=== PATIENT | male | born 1935 | race Caucasian/White ===

== ENCOUNTER → 2016-12-09 | Outpatient (CLI) | payer MEDICARE, BC ==
[~2016-12-09] MED LIST: ACTOS30 MG PO; ALMACONE 360 M360 ML PO; ASPIR-LOW81 MG PO; ASPIRIN 81M81 MG/TA2 PO; AVAPRO TAB150 MG/TAB PO; CALCIUM 600600 M2 PO; CALCIUM 600600 MG PO; CELEXA10 MG PO; CRESTOR10 MG PO; CYMBALTA 60MG60 MG PO; DIOVAN80 M1 PO; DULCOLAX S10 MG/SUPP RC; EPA FISH OIL1 SGL PO; FISH OIL CONC1000 MG PO; FLEXERIL 1010 MG/TAB PO; FLOMAX 0.40.4 MG/CAP PO; GLUCOTROL10 MG PO; HCTZ 25MG TAB25 MG PO; HYDROCHLOR50 MG PO; IMODIUM 2MG CAPS2 MG PO; JANUMXR100-1000 PO; LEXAPRO 10MG10 MG PO; LIDODERM 5% PATC1 EA TP; MILK OF MA400 MG/52 PO; MIRALAX PA17 GM/Dose PO; MULTI VITAMINS1 TAB PO; NEURONTIN100 MG/CAP PO; NEURONTIN400 MG/CAP PO; NITROSTAT0.4 MG/TAB SL; NORCO 325 MG-51 TAB PO; NORCO 325 MG-7.1 TAB PO; NORVASC 5MG5 MG/TAB PO; REQUIP 0.5MG0.5 MG PO; SENOKOT S 50 MG1 TAB PO; SINEMET CR 50 M1 TER PO; TENORMIN 2525 MG/TAB PO; TRAVATAN Z; TYLENOL 325MG325 MG PO; TYLENOL SU325 MG/SUP RC; TYLENOL SU650 MG/SUP RC; VALIUM 5MG T5 MG/TAB PO; VITAMIN D 1001000 IU PO; VITAMIN D1000 IU PO; VITAMIN E 400 U4001 PO; ZOCOR 10MG10 MG PO
== END ==
LOC: COL.CARD 07:09
DX: R55 Syncope and collapse (principal)

== ENCOUNTER 2016-12-22 12:23 | Emergency (ER) | payer MEDICARE, BC ==
[~2016-12-22] VITALS: Ht 170.2 cm; Wt 79.1 kg
[~2016-12-22 12:23] MED LIST changes: -ALMACONE 360 M360 ML PO; -ASPIRIN 81M81 MG/TA2 PO; -AVAPRO TAB150 MG/TAB PO; -CALCIUM 600600 M2 PO; -CALCIUM 600600 MG PO; -CELEXA10 MG PO; -CYMBALTA 60MG60 MG PO; -DULCOLAX S10 MG/SUPP RC; -EPA FISH OIL1 SGL PO; -FLEXERIL 1010 MG/TAB PO; -FLOMAX 0.40.4 MG/CAP PO; -HCTZ 25MG TAB25 MG PO; -IMODIUM 2MG CAPS2 MG PO; -JANUMXR100-1000 PO; -LEXAPRO 10MG10 MG PO; -LIDODERM 5% PATC1 EA TP; -MILK OF MA400 MG/52 PO; -MIRALAX PA17 GM/Dose PO; -MULTI VITAMINS1 TAB PO; -NEURONTIN100 MG/CAP PO; -NEURONTIN400 MG/CAP PO; -NITROSTAT0.4 MG/TAB SL; -NORCO 325 MG-51 TAB PO; -NORCO 325 MG-7.1 TAB PO; -REQUIP 0.5MG0.5 MG PO; -SENOKOT S 50 MG1 TAB PO; -SINEMET CR 50 M1 TER PO; -TENORMIN 2525 MG/TAB PO; -TYLENOL 325MG325 MG PO; -TYLENOL SU325 MG/SUP RC; -TYLENOL SU650 MG/SUP RC; -VALIUM 5MG T5 MG/TAB PO; -VITAMIN D 1001000 IU PO; -VITAMIN D1000 IU PO; -VITAMIN E 400 U4001 PO; -ZOCOR 10MG10 MG PO
[2016-12-22 12:24] VITALS: TEMP 98.1
[2016-12-22] MEDS ORDERED: HCTZ 25MG TAB25 MG PO (13:04)
[2016-12-22] MEDS ORDERED: SINEMET CR 50 M1 TER PO ×2 (13:07→13:08)
[2016-12-22] MEDS ORDERED: CALCIUM 600600 M2 PO (13:07)
[2016-12-22] MEDS ORDERED: LEXAPRO 10MG10 MG PO (13:09)
[2016-12-22] MEDS ORDERED: CYMBALTA 60MG60 MG PO (13:09)
[2016-12-22] MEDS ORDERED: VITAMIN D1000 IU PO (13:09)
[2016-12-22] MEDS ORDERED: NEURONTIN100 MG/CAP PO (13:24)
[2016-12-22] MEDS ORDERED: GLUCOTROL10 MG PO (13:25)
[2016-12-22] MEDS ORDERED: AVAPRO TAB150 MG/TAB PO (13:25)
[2016-12-22] MEDS ORDERED: MULTI VITAMINS1 TAB PO (13:26)
[2016-12-22] MEDS ORDERED: NITROSTAT0.4 MG/TAB SL (13:27)
[2016-12-22] MEDS ORDERED: REQUIP 0.5MG0.5 MG PO (13:28)
[2016-12-22] MEDS ORDERED: ZOCOR 10MG10 MG PO (13:29)
[2016-12-22] MEDS ORDERED: FLOMAX 0.40.4 MG/CAP PO (13:30)
[2016-12-22] MEDS ORDERED: JANUMXR100-1000 PO (13:30)
[2016-12-22] MEDS ORDERED: VITAMIN E 400 U4001 PO (13:31)
[2016-12-22 14:27] VITALS: BP 149/89; PULSE 100
[2017-01-26] MEDS ORDERED: MILK OF MA400 MG/52 PO (12:56)
[2017-01-26] MEDS ORDERED: ALMACONE 360 M360 ML PO (12:56)
[2017-01-26] MEDS ORDERED: DULCOLAX S10 MG/SUPP RC (12:57)
[2017-01-26] MEDS ORDERED: TYLENOL SU325 MG/SUP RC (15:40)
[2017-01-26] MEDS ORDERED: IMODIUM 2MG CAPS2 MG PO (15:45)
[2017-01-26] MEDS ORDERED: TYLENOL 325MG325 MG PO (15:45)
[2017-01-26] MEDS ORDERED: FLEXERIL 1010 MG/TAB PO (15:46)
[2017-01-26] MEDS ORDERED: NORCO 325 MG-51 TAB PO (15:46)
[2017-01-26] MEDS ORDERED: SENOKOT S 50 MG1 TAB PO (15:47)
[2017-01-26] MEDS ORDERED: MIRALAX PA17 GM/Dose PO (15:47)
[2017-01-26] MEDS ORDERED: ASPIRIN 81M81 MG/TA2 PO (15:47)
[2017-01-26] MEDS ORDERED: HCTZ 25MG TAB25 MG PO (15:48)
[2017-01-26] MEDS ORDERED: EPA FISH OIL1 SGL PO (15:48)
[2017-01-26] MEDS ORDERED: CALCIUM 600600 MG PO (15:49)
[2017-01-26] MEDS ORDERED: VITAMIN D 1001000 IU PO (15:50)
[2017-01-26] MEDS ORDERED: NEURONTIN400 MG/CAP PO (15:50)
[2017-01-26] MEDS ORDERED: AVAPRO TAB150 MG/TAB PO (15:51)
[2017-01-26] MEDS ORDERED: GLUCOTROL10 MG PO (15:51)
[2017-01-26] MEDS ORDERED: MULTI VITAMINS1 TAB PO (15:52)
[2017-01-26] MEDS ORDERED: NITROSTAT0.4 MG/TAB SL (15:52)
[2017-01-26] MEDS ORDERED: ZOCOR 10MG10 MG PO (15:53)
[2017-01-26] MEDS ORDERED: REQUIP 0.5MG0.5 MG PO (15:53)
[2017-01-26] MEDS ORDERED: FLOMAX 0.40.4 MG/CAP PO (15:54)
[2017-01-26] MEDS ORDERED: JANUMXR100-1000 PO (15:54)
[2017-01-26] MEDS ORDERED: TENORMIN 2525 MG/TAB PO (15:54)
[2017-01-26] MEDS ORDERED: SINEMET CR 50 M1 TER PO ×2 (15:56)
[2017-01-26] MEDS ORDERED: LIDODERM 5% PATC1 EA TP (15:57)
[2017-01-26] MEDS ORDERED: NORCO 325 MG-7.1 TAB PO (15:57)
[2017-01-26] MEDS ORDERED: CYMBALTA 60MG60 MG PO (15:58)
[2017-01-26] MEDS ORDERED: LEXAPRO 10MG10 MG PO (15:58)
[2017-01-26] MEDS ORDERED: CELEXA10 MG PO (15:59)
[2017-01-26] MEDS ORDERED: VALIUM 5MG T5 MG/TAB PO (16:00)
== END 2016-12-22 14:29 | disposition home or self-care (01) ==
LOC: COL.ER 12:23
DX: K56.41 Fecal impaction (principal); E11.9 Type 2 diabetes mellitus without complications; I10 Essential (primary) hypertension; G20 Parkinson's disease

== ENCOUNTER 2017-01-11 13:49 | Inpatient (IN) | payer MEDICARE, BC ==
[2017-01-11] VITALS (129 sets, daily range): BP systolic 135; BP diastolic 81; PULSE 70; TEMP 97.9; O2SAT 62–100
[~2017-01-11] VITALS: Ht 167.6 cm; Wt 78.6 kg
[~2017-01-11 13:49] MED LIST changes: +AVAPRO TAB150 MG/TAB PO; +CALCIUM 600600 M2 PO; +CYMBALTA 60MG60 MG PO; +FLOMAX 0.40.4 MG/CAP PO; +HCTZ 25MG TAB25 MG PO; +JANUMXR100-1000 PO; +LEXAPRO 10MG10 MG PO; +MULTI VITAMINS1 TAB PO; +NEURONTIN100 MG/CAP PO; +NITROSTAT0.4 MG/TAB SL; +REQUIP 0.5MG0.5 MG PO; +SINEMET CR 50 M1 TER PO; +VITAMIN D1000 IU PO; +VITAMIN E 400 U4001 PO; +ZOCOR 10MG10 MG PO
[2017-01-11 14:32] LABS: BASO % 0.6 % (0.0-2.0); EOS # 0.1 (0.0-0.7); EOS % 1.6 % (0-4.0); GRAN # 5.2 (1.4-6.5); GRAN % 78.1 % (42.2-75.2); LYMPH # 0.9 (1.2-3.4); LYMPH % 12.9 % (20.0-51.0); MEAN CELL VOLUME 85 fl (80.0-100.0); MEAN CORPUSCULAR HGB CONC 32 g/dl (33.0-37.0); MEAN PLATELET VOLUME 9.4 fl (7.4-10.4); MONO # 0.4 (0.1-0.6); MONO % 6.4 % (1.7-9.3); PLATELET COUNT 250 K/mm3 (130-400); RED BLOOD COUNT 4.29 M/mm3 (4.20-5.60); REDCELL DISTRIBUTION WIDTH-CV 15.2 % (11.5-14.5); WHITE BLOOD COUNT 6.7 K/mm3 (4.8-10.8)
[2017-01-11 14:38] LABS: HEMATOCRIT 36.6 % (42.0-52.0); HEMOGLOBIN 11.8 g/dl (13.5-18.0); MEAN CORPUSCULAR HEMOGLOBIN 28 pg (27.0-31.0)
[2017-01-11 14:49] LABS: ADJUSTED CALCIUM 9.1 mg/dL (8.4-10.2); ALANINE AMINOTRANSFERASE 18 U/L (21-72); ALBUMIN 3.7 gm/dL (3.5-5.0); ALKALINE PHOSPHATASE 68 U/L (50-136); ANION GAP 11 mmol/L (7-16); BILIRUBIN,TOTAL 0.7 mg/dL (0.0-1.0); BLOOD UREA NITROGEN 18 mg/dL (9-20); CALCIUM 8.9 mg/dL (8.4-10.2); CARBON DIOXIDE 26 mmol/L (22-30); CHLORIDE 102 mmol/L (98-107); GLUCOSE 131 mg/dL (74-106); POTASSIUM 4.2 mmol/L (3.4-5.0); SODIUM 139 mmol/L (137-145); TOTAL PROTEIN 6.7 gm/dL (6.4-8.2)
[2017-01-11] MEDS ORDERED: TENORMIN 2525 MG/TAB PO (14:55)
[2017-01-11 14:57] LABS: C-REACTIVE PROTEIN < 0.5 mg/dL (0.0-0.9)
[2017-01-11 15:45] LABS: PH 7 (5-8); SQUAMOUS EPITHELIAL None Seen /hpf; URINE APPEARANCE Clear; URINE BACTERIA None Seen /hpf; URINE BILIRUBIN Negative (NEGATIVE); URINE BLOOD Negative (NEGATIVE); URINE COLOR Yellow; URINE GLUCOSE Negative (NEGATIVE); URINE KETONE Negative (NEGATIVE); URINE RBC 0-2 /hpf; URINE UROBILINOGEN Negative (NEGATIVE); URINE WBC 0-2 /hpf
[2017-01-11] MEDS ORDERED: NORCO 325 MG-51 TAB PO (16:48)
[2017-01-12] VITALS (422 sets, daily range): BP systolic 121–167; BP diastolic 57–84; PULSE 52–79; TEMP 97.7–98.4; O2SAT 83–100
[2017-01-13 04:32] VITALS: BP 150/77; PULSE 70; TEMP 98.6
[2017-01-13 08:25] VITALS: BP 156/89; PULSE 72; TEMP 98.2
[2017-01-13 12:41] VITALS: BP 137/77; PULSE 67; TEMP 97.7
[2017-01-13 15:21] VITALS: BP 139/65; PULSE 35; TEMP 98.2
[2017-01-13 19:37] VITALS: BP 119/91; PULSE 75; TEMP 98.6
[2017-01-13 23:39] VITALS: BP 135/95; PULSE 72; TEMP 98.7
[2017-01-14 03:19] VITALS: BP 117/84; PULSE 49; TEMP 98.4
[2017-01-14 06:43] LABS: HEMATOCRIT 39.1 % (42.0-52.0); HEMOGLOBIN 12.3 g/dl (13.5-18.0); MEAN CELL VOLUME 89 fl (80.0-100.0); MEAN CORPUSCULAR HEMOGLOBIN 28 pg (27.0-31.0); MEAN CORPUSCULAR HGB CONC 32 g/dl (33.0-37.0); MEAN PLATELET VOLUME 9.8 fl (7.4-10.4); PLATELET COUNT 252 K/mm3 (130-400); RED BLOOD COUNT 4.41 M/mm3 (4.20-5.60); REDCELL DISTRIBUTION WIDTH-CV 15.8 % (11.5-14.5); WHITE BLOOD COUNT 6.2 K/mm3 (4.8-10.8)
[2017-01-14 07:00] LABS: CALCIUM 9.2 mg/dL (8.4-10.2); CREATININE, serum 1.74 mg/dL (0.66-1.25)
[2017-01-14 07:53] VITALS: BP 119/56; PULSE 77; TEMP 97.8
[2017-01-14 11:16] VITALS: BP 101/56; PULSE 119; TEMP 98
[2017-01-14 16:04] VITALS: BP 114/46; PULSE 79; TEMP 97.6
[2017-01-14 21:08] VITALS: BP 151/77; PULSE 75; TEMP 98
[2017-01-14 22:35] VITALS: BP 113/56; PULSE 50; TEMP 97.4
[2017-01-15 02:50] VITALS: BP 107/55; PULSE 74; TEMP 98.2
[2017-01-15 07:34] VITALS: BP 131/71; PULSE 78; TEMP 97.4
[2017-01-15 08:00] LABS: HEMATOCRIT 38.3 % (42.0-52.0); HEMOGLOBIN 12.2 g/dl (13.5-18.0); MEAN CELL VOLUME 87 fl (80.0-100.0); MEAN CORPUSCULAR HEMOGLOBIN 28 pg (27.0-31.0); MEAN CORPUSCULAR HGB CONC 32 g/dl (33.0-37.0); MEAN PLATELET VOLUME 10.1 fl (7.4-10.4); PLATELET COUNT 261 K/mm3 (130-400); RED BLOOD COUNT 4.38 M/mm3 (4.20-5.60); REDCELL DISTRIBUTION WIDTH-CV 15.5 % (11.5-14.5); WHITE BLOOD COUNT 6.1 K/mm3 (4.8-10.8)
[2017-01-15 08:09] LABS: CREATININE, serum 1.63 mg/dL (0.66-1.25); POTASSIUM 4.2 mmol/L (3.4-5.0)
[2017-01-15] MEDS ORDERED: FLEXERIL 1010 MG/TAB PO (09:56)
[2017-01-15] MEDS ORDERED: SENOKOT S 50 MG1 TAB PO (09:59)
[2017-01-15] MEDS ORDERED: DULCOLAX S10 MG/SUPP RC (10:00)
[2017-01-15] MEDS ORDERED: MIRALAX PA17 GM/Dose PO (10:00)
[2017-01-15] MEDS ORDERED: NORCO 325 MG-51 TAB PO (10:01)
[2017-01-15] MEDS ORDERED: VALIUM 5MG T5 MG/TAB PO (10:12)
[2017-01-15 10:48] VITALS: BP 153/73; PULSE 35; TEMP 97.7
[2017-01-15 11:40] VITALS: BP 153/73; PULSE 35; TEMP 97.7
[2017-01-26] MEDS ORDERED: ALMACONE 360 M360 ML PO (12:56)
[2017-01-26] MEDS ORDERED: MILK OF MA400 MG/52 PO (12:56)
[2017-01-26] MEDS ORDERED: DULCOLAX S10 MG/SUPP RC (12:57)
[2017-01-26] MEDS ORDERED: TYLENOL SU325 MG/SUP RC (15:40)
[2017-01-26] MEDS ORDERED: TYLENOL 325MG325 MG PO (15:45)
[2017-01-26] MEDS ORDERED: IMODIUM 2MG CAPS2 MG PO (15:45)
[2017-01-26] MEDS ORDERED: NORCO 325 MG-51 TAB PO (15:46)
[2017-01-26] MEDS ORDERED: FLEXERIL 1010 MG/TAB PO (15:46)
[2017-01-26] MEDS ORDERED: ASPIRIN 81M81 MG/TA2 PO (15:47)
[2017-01-26] MEDS ORDERED: MIRALAX PA17 GM/Dose PO (15:47)
[2017-01-26] MEDS ORDERED: SENOKOT S 50 MG1 TAB PO (15:47)
[2017-01-26] MEDS ORDERED: HCTZ 25MG TAB25 MG PO (15:48)
[2017-01-26] MEDS ORDERED: EPA FISH OIL1 SGL PO (15:48)
[2017-01-26] MEDS ORDERED: CALCIUM 600600 MG PO (15:49)
[2017-01-26] MEDS ORDERED: VITAMIN D 1001000 IU PO (15:50)
[2017-01-26] MEDS ORDERED: NEURONTIN400 MG/CAP PO (15:50)
[2017-01-26] MEDS ORDERED: GLUCOTROL10 MG PO (15:51)
[2017-01-26] MEDS ORDERED: AVAPRO TAB150 MG/TAB PO (15:51)
[2017-01-26] MEDS ORDERED: MULTI VITAMINS1 TAB PO (15:52)
[2017-01-26] MEDS ORDERED: NITROSTAT0.4 MG/TAB SL (15:52)
[2017-01-26] MEDS ORDERED: ZOCOR 10MG10 MG PO (15:53)
[2017-01-26] MEDS ORDERED: REQUIP 0.5MG0.5 MG PO (15:53)
[2017-01-26] MEDS ORDERED: JANUMXR100-1000 PO (15:54)
[2017-01-26] MEDS ORDERED: TENORMIN 2525 MG/TAB PO (15:54)
[2017-01-26] MEDS ORDERED: FLOMAX 0.40.4 MG/CAP PO (15:54)
[2017-01-26] MEDS ORDERED: SINEMET CR 50 M1 TER PO ×2 (15:56)
[2017-01-26] MEDS ORDERED: LIDODERM 5% PATC1 EA TP (15:57)
[2017-01-26] MEDS ORDERED: NORCO 325 MG-7.1 TAB PO (15:57)
[2017-01-26] MEDS ORDERED: LEXAPRO 10MG10 MG PO (15:58)
[2017-01-26] MEDS ORDERED: CYMBALTA 60MG60 MG PO (15:58)
[2017-01-26] MEDS ORDERED: CELEXA10 MG PO (15:59)
[2017-01-26] MEDS ORDERED: VALIUM 5MG T5 MG/TAB PO (16:00)
== END 2017-01-15 14:33 | DRG 552 ==
LOC: COL.ER 13:49 → ICU 19:16 → MEDICAL 19:16
PROVIDERS: Emergency Medicine; Internal Medicine
PROC: 3E0233Z Introduction of Anti-inflammatory into Muscle, Percutaneous Approach (ICD-10-PCS; principal; 2017-01-14)
PROC: 3E023BZ Introduction of Anesthetic Agent into Muscle, Percutaneous Approach (ICD-10-PCS; 2017-01-14)
DX: M54.32 Sciatica, left side (principal); M51.17 Intervertebral disc disorders with radiculopathy, lumbosacral region; Z66 Do not resuscitate; G20 Parkinson's disease; I10 Essential (primary) hypertension; E11.9 Type 2 diabetes mellitus without complications; Z87.891 Personal history of nicotine dependence
CPT/HCPCS: 99223-AI; 99232-AI; 99233-AI; 99239; J0360; J1170; J1815; J2405; J3301; J3360; J7030; Q9967

== ENCOUNTER 2017-01-25 10:46 | Emergency (ER) | payer MEDICARE, BC ==
[~2017-01-25] VITALS: Ht 167.6 cm; Wt 77.3 kg
[~2017-01-25 10:46] MED LIST changes: +DULCOLAX S10 MG/SUPP RC; +FLEXERIL 1010 MG/TAB PO; +MIRALAX PA17 GM/Dose PO; +NORCO 325 MG-51 TAB PO; +SENOKOT S 50 MG1 TAB PO; +TENORMIN 2525 MG/TAB PO; +VALIUM 5MG T5 MG/TAB PO
[2017-01-25 10:47] VITALS: TEMP 98.3
[2017-01-25] MEDS ORDERED: ALMACONE 360 M360 ML PO (11:13)
[2017-01-25] MEDS ORDERED: MILK OF MA400 MG/52 PO (11:13)
[2017-01-25] MEDS ORDERED: TYLENOL 325MG325 MG PO (11:14)
[2017-01-25] MEDS ORDERED: TYLENOL SU650 MG/SUP RC (11:14)
[2017-01-25] MEDS ORDERED: IMODIUM 2MG CAPS2 MG PO (11:15)
[2017-01-25] MEDS ORDERED: SINEMET CR 50 M1 TER PO (11:21)
[2017-01-25] MEDS ORDERED: NORCO 325 MG-7.1 TAB PO (11:22)
[2017-01-25] MEDS ORDERED: LIDODERM 5% PATC1 EA TP (11:23)
[2017-01-25 12:05] VITALS: BP 136/83; PULSE 74
[2017-01-26] MEDS ORDERED: MILK OF MA400 MG/52 PO (12:56)
[2017-01-26] MEDS ORDERED: ALMACONE 360 M360 ML PO (12:56)
[2017-01-26] MEDS ORDERED: DULCOLAX S10 MG/SUPP RC (12:57)
[2017-01-26] MEDS ORDERED: TYLENOL SU325 MG/SUP RC (15:40)
[2017-01-26] MEDS ORDERED: TYLENOL 325MG325 MG PO (15:45)
[2017-01-26] MEDS ORDERED: IMODIUM 2MG CAPS2 MG PO (15:45)
[2017-01-26] MEDS ORDERED: FLEXERIL 1010 MG/TAB PO (15:46)
[2017-01-26] MEDS ORDERED: NORCO 325 MG-51 TAB PO (15:46)
[2017-01-26] MEDS ORDERED: SENOKOT S 50 MG1 TAB PO (15:47)
[2017-01-26] MEDS ORDERED: ASPIRIN 81M81 MG/TA2 PO (15:47)
[2017-01-26] MEDS ORDERED: MIRALAX PA17 GM/Dose PO (15:47)
[2017-01-26] MEDS ORDERED: EPA FISH OIL1 SGL PO (15:48)
[2017-01-26] MEDS ORDERED: HCTZ 25MG TAB25 MG PO (15:48)
[2017-01-26] MEDS ORDERED: CALCIUM 600600 MG PO (15:49)
[2017-01-26] MEDS ORDERED: VITAMIN D 1001000 IU PO (15:50)
[2017-01-26] MEDS ORDERED: NEURONTIN400 MG/CAP PO (15:50)
[2017-01-26] MEDS ORDERED: GLUCOTROL10 MG PO (15:51)
[2017-01-26] MEDS ORDERED: AVAPRO TAB150 MG/TAB PO (15:51)
[2017-01-26] MEDS ORDERED: MULTI VITAMINS1 TAB PO (15:52)
[2017-01-26] MEDS ORDERED: NITROSTAT0.4 MG/TAB SL (15:52)
[2017-01-26] MEDS ORDERED: ZOCOR 10MG10 MG PO (15:53)
[2017-01-26] MEDS ORDERED: REQUIP 0.5MG0.5 MG PO (15:53)
[2017-01-26] MEDS ORDERED: FLOMAX 0.40.4 MG/CAP PO (15:54)
[2017-01-26] MEDS ORDERED: JANUMXR100-1000 PO (15:54)
[2017-01-26] MEDS ORDERED: TENORMIN 2525 MG/TAB PO (15:54)
[2017-01-26] MEDS ORDERED: SINEMET CR 50 M1 TER PO ×2 (15:56)
[2017-01-26] MEDS ORDERED: NORCO 325 MG-7.1 TAB PO (15:57)
[2017-01-26] MEDS ORDERED: LIDODERM 5% PATC1 EA TP (15:57)
[2017-01-26] MEDS ORDERED: LEXAPRO 10MG10 MG PO (15:58)
[2017-01-26] MEDS ORDERED: CYMBALTA 60MG60 MG PO (15:58)
[2017-01-26] MEDS ORDERED: CELEXA10 MG PO (15:59)
[2017-01-26] MEDS ORDERED: VALIUM 5MG T5 MG/TAB PO (16:00)
== END 2017-01-25 12:30 | disposition home or self-care (01) ==
LOC: COL.ER 10:46
DX: I49.3 Ventricular premature depolarization (principal); E11.9 Type 2 diabetes mellitus without complications; I10 Essential (primary) hypertension; Z86.73 Personal history of transient ischemic attack (TIA), and cerebral infarction without residual deficits; G20 Parkinson's disease; Z79.82 Long term (current) use of aspirin; Z79.84 Long term (current) use of oral hypoglycemic drugs

== ENCOUNTER → 2017-01-30 | Outpatient (CLI) | payer MEDICARE, BC ==
[~2017-01-30] VITALS: Ht 167.6 cm; Wt 77.3 kg
[~2017-01-30] MED LIST changes: +ALMACONE 360 M360 ML PO; +ASPIRIN 81M81 MG/TA2 PO; +CALCIUM 600600 MG PO; +CELEXA10 MG PO; +EPA FISH OIL1 SGL PO; +IMODIUM 2MG CAPS2 MG PO; +LIDODERM 5% PATC1 EA TP; +MILK OF MA400 MG/52 PO; +NEURONTIN400 MG/CAP PO; +NORCO 325 MG-7.1 TAB PO; +TYLENOL 325MG325 MG PO; +TYLENOL SU325 MG/SUP RC; +TYLENOL SU650 MG/SUP RC; +VITAMIN D 1001000 IU PO
[2017-01-30 09:25] VITALS: BP 134/86; PULSE 46
[2017-01-30 10:30] VITALS: BP 110/40; PULSE 38
== END ==
LOC: COL.RAD 08:53
DX: M48.06 Spinal stenosis, lumbar region (principal); G82.20 Paraplegia, unspecified; M51.36 Other intervertebral disc degeneration, lumbar region
CPT/HCPCS: J3301

== ENCOUNTER → 2017-02-02 | Outpatient (CLI) | payer MEDICARE, BC | LOC: COL.CARD 11:48 | DX: R00.1 Bradycardia, unspecified (principal) ==

== ENCOUNTER → 2017-03-02 | Outpatient (CLI) | payer MEDICARE, BC | LOC: MHCPAIN 10:29 | DX: G89.29 Other chronic pain (principal); M47.817 Spondylosis without myelopathy or radiculopathy, lumbosacral region; M54.16 Radiculopathy, lumbar region; M53.3 Sacrococcygeal disorders, not elsewhere classified | CPT/HCPCS: G0463 ==

== ENCOUNTER 2017-03-03 08:30 | Outpatient (RCR) | payer MEDICARE, BC | END 2017-03-03 10:30 | LOC: WSPT 08:30 | DX: M48.06 Spinal stenosis, lumbar region (principal); Z87.891 Personal history of nicotine dependence ==

== ENCOUNTER 2017-05-29 08:00 | Outpatient (RCR) | payer MEDICARE, BC | END 2017-06-04 11:42 | LOC: MKS.ESL.PT 08:00 | DX: Z47.89 Encounter for other orthopedic aftercare (principal); R53.1 Weakness; R20.0 Anesthesia of skin; R26.89 Other abnormalities of gait and mobility; Z98.890 Other specified postprocedural states | CPT/HCPCS: G8978-GP; G8979-GP; G8980-GP ==

== ENCOUNTER → 2018-05-12 | Outpatient (CLI) | payer MEDICARE, BC ==
[~2018-05-12] VITALS: Ht 167.6 cm; Wt 77.7 kg
[~2018-05-12] MED LIST changes: +ARICEPT10 MG PO; +B COMPLEX #11 TAB PO; +FLONASEALLERGY NS; +GINKGO3 PO; +GLUCOPHAGE1000 MG PO; +LASIX 40MG TABL40 MG PO; +SINEMET 25/101 UDTAB PO
[2018-05-12 09:04] VITALS: BP 119/75; PULSE 100
[2018-05-12 10:50] VITALS: BP 126/74; PULSE 101
[2018-05-12 11:22] VITALS: BP 119/83; PULSE 101
== END ==
LOC: COL.RAD 05-05 11:45
DX: M50.01 Cervical disc disorder with myelopathy, high cervical region (principal); M50.11 Cervical disc disorder with radiculopathy, high cervical region; M47.12 Other spondylosis with myelopathy, cervical region; M47.22 Other spondylosis with radiculopathy, cervical region; J90 Pleural effusion, not elsewhere classified
CPT/HCPCS: G9654; J2250; J2704; J3010

== ENCOUNTER → 2018-05-19 | Outpatient (CLI) | payer MEDICARE, BC | LOC: COL.RAD 10:05 | DX: J90 Pleural effusion, not elsewhere classified (principal); I35.2 Nonrheumatic aortic (valve) stenosis with insufficiency; R00.0 Tachycardia, unspecified; I07.1 Rheumatic tricuspid insufficiency; I34.0 Nonrheumatic mitral (valve) insufficiency ==

== ENCOUNTER 2018-06-01 16:22 | Inpatient (IN) | payer MEDICARE, BC ==
[~2018-06-01] VITALS: Ht 167.6 cm; Wt 79.7 kg
[2018-06-01 16:54] VITALS: O2SAT 80; O2SAT 97
[2018-06-01] MEDS ORDERED: ALDACTONE 25MG25 M1 PO (18:03)
[2018-06-01] MEDS ORDERED: COZAAR 50MG50 MG/TAB PO (18:04)
[2018-06-01] MEDS ORDERED: COREG 3.123.125 MG/T PO (18:04)
[2018-06-01] MEDS ORDERED: CEPHALEXIN500 M1 PO ×2 (18:05→18:07)
[2018-06-01] MEDS ORDERED: NEURONTIN300 MG/CAP PO (18:08)
[2018-06-01 18:29] LABS: BASO % 0.5 % (0.0-2.0); EOS # 0.1 (0.0-0.7); EOS % 1.6 % (0-4.0); GRAN # 5.4 (1.4-6.5); GRAN % 85.8 % (42.2-75.2); LYMPH # 0.3 (1.2-3.4); LYMPH % 5.2 % (20.0-51.0); MEAN CELL VOLUME 85 fl (80.0-100.0); MEAN CORPUSCULAR HGB CONC 32 g/dl (33.0-37.0); MEAN PLATELET VOLUME 10.7 fl (7.4-10.4); MONO # 0.4 (0.1-0.6); MONO % 6.6 % (1.7-9.3); PLATELET COUNT 263 K/mm3 (130-400); RED BLOOD COUNT 3.59 M/mm3 (4.20-5.60); REDCELL DISTRIBUTION WIDTH-CV 18.8 % (11.5-14.5)
[2018-06-01 18:31] VITALS: BP 102/73; PULSE 72; TEMP 97.7
[2018-06-01 18:36] LABS: HEMATOCRIT 30.6 % (42.0-52.0); HEMOGLOBIN 9.7 g/dl (13.5-18.0); MEAN CORPUSCULAR HEMOGLOBIN 27 pg (27.0-31.0)
[2018-06-01 18:39] LABS: ALBUMIN 3.4 gm/dL (3.5-5.0); BILIRUBIN,TOTAL 0.4 mg/dL (0.0-1.0); CALCIUM 9.1 mg/dL (8.4-10.2); POTASSIUM 4.9 mmol/L (3.4-5.0); TOTAL PROTEIN 6.7 gm/dL (6.4-8.2)
[2018-06-01 18:41] LABS: CREATININE, serum 5.2 mg/dL (0.66-1.25)
[2018-06-01 19:54] LABS: COLLECTION METHOD CLEAN CATCH
[2018-06-01 20:00] VITALS: BP 124/94; PULSE 70; TEMP 97.6
[2018-06-01 20:00] LABS: PH 5 (5-8); SQUAMOUS EPITHELIAL 0-2 /hpf; URINE APPEARANCE Clear; URINE BACTERIA None Seen /hpf; URINE BILIRUBIN Negative (NEGATIVE); URINE BLOOD Negative (NEGATIVE); URINE COLOR Yellow; URINE GLUCOSE Negative (NEGATIVE); URINE KETONE Negative (NEGATIVE); URINE LEUKOCYTE ESTERASE Negative (NEGATIVE); URINE NITRATE Negative (NEGATIVE); URINE PROTEIN(semi-quant) Negative (NEGATIVE); URINE RBC 0-2 /hpf; URINE UROBILINOGEN Negative (NEGATIVE)
[2018-06-01 20:02] LABS: URINE PROTEIN:CREAT RATIO 0.44 (0.00-0.14)
[2018-06-01 21:10] VITALS: O2SAT 90
[2018-06-01 21:11] VITALS: O2SAT 87
[2018-06-01 23:43] VITALS: BP 109/76; PULSE 72; TEMP 97.8
[2018-06-02] VITALS (7 sets, daily range): BP systolic 121–132; BP diastolic 66–104; PULSE 70–82; TEMP 97.1–98.9; O2SAT 92
[2018-06-02 05:32] LABS: BASO % 0.6 % (0.0-2.0); EOS # 0.2 (0.0-0.7); EOS % 2.7 % (0-4.0); GRAN # 5.3 (1.4-6.5); GRAN % 85.3 % (42.2-75.2); LYMPH # 0.3 (1.2-3.4); LYMPH % 5.1 % (20.0-51.0); MEAN CELL VOLUME 86 fl (80.0-100.0); MEAN CORPUSCULAR HGB CONC 31 g/dl (33.0-37.0); MEAN PLATELET VOLUME 10.4 fl (7.4-10.4); MONO # 0.4 (0.1-0.6); MONO % 5.8 % (1.7-9.3); PLATELET COUNT 256 K/mm3 (130-400); RED BLOOD COUNT 3.53 M/mm3 (4.20-5.60); REDCELL DISTRIBUTION WIDTH-CV 18.8 % (11.5-14.5)
[2018-06-02 05:37] LABS: HEMATOCRIT 30.3 % (42.0-52.0); HEMOGLOBIN 9.4 g/dl (13.5-18.0); MEAN CORPUSCULAR HEMOGLOBIN 27 pg (27.0-31.0)
[2018-06-02 05:53] LABS: ALBUMIN 3.2 gm/dL (3.5-5.0); CALCIUM 8.9 mg/dL (8.4-10.2); PHOSPHOROUS 5.9 mg/dL (2.5-4.5); POTASSIUM 4.9 mmol/L (3.4-5.0)
[2018-06-02 05:59] LABS: CREATININE, serum 4.94 mg/dL (0.66-1.25)
[2018-06-03] VITALS (7 sets, daily range): BP systolic 106–142; BP diastolic 64–95; PULSE 60–87; TEMP 97.4–98.2; O2SAT 98
[2018-06-03 05:56] LABS: MEAN CELL VOLUME 85 fl (80.0-100.0); MEAN CORPUSCULAR HEMOGLOBIN 27 pg (27.0-31.0); MEAN CORPUSCULAR HGB CONC 31 g/dl (33.0-37.0); MEAN PLATELET VOLUME 10.3 fl (7.4-10.4); PLATELET COUNT 275 K/mm3 (130-400); RED BLOOD COUNT 3.75 M/mm3 (4.20-5.60); REDCELL DISTRIBUTION WIDTH-CV 19.2 % (11.5-14.5)
[2018-06-03 06:08] LABS: ALBUMIN 3.1 gm/dL (3.5-5.0); CALCIUM 9.2 mg/dL (8.4-10.2); PHOSPHOROUS 6.7 mg/dL (2.5-4.5); POTASSIUM 5.1 mmol/L (3.4-5.0)
[2018-06-03 06:11] LABS: CREATININE, serum 4.85 mg/dL (0.66-1.25)
[2018-06-03 09:39] LABS: BAND 2 % (0-10); LYMPHOCYTE 2 % (20.0-51.0); NEUTROPHILS 92 % (42.0-75.2); PLATELET ESTIMATE NORMAL (NORMAL)
[2018-06-03 09:40] LABS: ANISOCYTOSIS 1+
[2018-06-04 03:36] VITALS: BP 95/66; PULSE 71
[2018-06-04 04:39] VITALS: BP 107/59
[2018-06-04 06:51] LABS: BASO % 0.3 % (0.0-2.0); EOS % 0.7 % (0-4.0); GRAN # 5.3 (1.4-6.5); GRAN % 88.4 % (42.2-75.2); LYMPH # 0.3 (1.2-3.4); MEAN CELL VOLUME 86 fl (80.0-100.0); MEAN CORPUSCULAR HGB CONC 32 g/dl (33.0-37.0); MEAN PLATELET VOLUME 10.4 fl (7.4-10.4); MONO # 0.3 (0.1-0.6); MONO % 5.3 % (1.7-9.3); PLATELET COUNT 244 K/mm3 (130-400); RED BLOOD COUNT 3.56 M/mm3 (4.20-5.60); REDCELL DISTRIBUTION WIDTH-CV 19.6 % (11.5-14.5)
[2018-06-04 06:52] LABS: HEMATOCRIT 30.7 % (42.0-52.0); HEMOGLOBIN 9.7 g/dl (13.5-18.0); MEAN CORPUSCULAR HEMOGLOBIN 27 pg (27.0-31.0)
[2018-06-04 06:59] LABS: PHOSPHOROUS 6.1 mg/dL (2.5-4.5); POTASSIUM 4.5 mmol/L (3.4-5.0)
[2018-06-04 07:06] LABS: CREATININE, serum 4.82 mg/dL (0.66-1.25)
[2018-06-04 07:15] VITALS: BP 119/85; PULSE 85; TEMP 98.2
[2018-06-04] MEDS ORDERED: LASIX 40MG TABL40 MG PO (11:59)
[2018-06-04 12:00] VITALS: BP 122/89; PULSE 76; TEMP 98.5
[2018-06-04] MEDS ORDERED: JANUVIA25 MG PO (12:00)
[2018-06-04] MEDS ORDERED: CALCIUM 600600 MG PO (12:20)
== END 2018-06-04 14:44 | DRG 682 ==
LOC: ICU 16:22 → MEDICAL 06-03 11:09
PROVIDERS: Internal Medicine Nephrology
DX: N17.9 Acute kidney failure, unspecified (principal); I50.23 Acute on chronic systolic (congestive) heart failure; I13.0 Hypertensive heart and chronic kidney disease with heart failure and stage 1 through stage 4 chronic kidney disease, or unspecified chronic kidney disease; L03.116 Cellulitis of left lower limb; N18.3 Chronic kidney disease, stage 3 (moderate); E11.22 Type 2 diabetes mellitus with diabetic chronic kidney disease; Z66 Do not resuscitate; E11.21 Type 2 diabetes mellitus with diabetic nephropathy; E11.42 Type 2 diabetes mellitus with diabetic polyneuropathy; G20 Parkinson's disease; F03.90 Unspecified dementia, unspecified severity, without behavioral disturbance, psychotic disturbance, mood disturbance, and anxiety; E78.5 Hyperlipidemia, unspecified; D63.1 Anemia in chronic kidney disease; E83.39 Other disorders of phosphorus metabolism
CPT/HCPCS: J1650; J1815; J1940; J7030

== ENCOUNTER → 2018-06-30 | Outpatient (CLI) | payer MEDICARE, BC ==
[~2018-06-30] MED LIST changes: +ALDACTONE 25MG25 M1 PO; +CEPHALEXIN500 M1 PO; +COREG 3.123.125 MG/T PO; +COZAAR 25MG25 MG/TAB PO; +COZAAR 50MG50 MG/TAB PO; +CYMBALTA 30MG30 MG PO; +GENTLE LAXATIVE10 MG RC; +JANUVIA25 MG PO; +LASIX 20MG TABL20 MG PO; +NEURONTIN300 MG/CAP PO; +NOVOLOG FLEX100 U/ML SQ; +PACERONE400 MG PO
== END ==
LOC: MHCPAIN 10:26
DX: G89.29 Other chronic pain (principal); M47.817 Spondylosis without myelopathy or radiculopathy, lumbosacral region; M54.16 Radiculopathy, lumbar region; M53.3 Sacrococcygeal disorders, not elsewhere classified; M96.1 Postlaminectomy syndrome, not elsewhere classified; M50.90 Cervical disc disorder, unspecified, unspecified cervical region
CPT/HCPCS: G0463

== ENCOUNTER 2018-07-12 14:00 | Outpatient (RCR) | payer MEDICARE, BC ==
[2018-07-02 13:15] VITALS: BP 109/53; PULSE 66; TEMP 97.5
[2018-07-07 12:35] VITALS: BP 119/73; PULSE 75; TEMP 98
[~2018-07-12] VITALS: Ht 167.6 cm; Wt 71.0 kg
[2018-07-12 13:45] VITALS: BP 95/47; PULSE 54; TEMP 97.2
== END 2018-07-12 15:00 ==
LOC: EUO 14:00
DX: D50.9 Iron deficiency anemia, unspecified (principal)
CPT/HCPCS: J2916

== ENCOUNTER → 2018-07-15 | Outpatient (CLI) | payer MEDICARE, BC | LOC: MHCPAIN 09:41 | DX: M47.814 Spondylosis without myelopathy or radiculopathy, thoracic region (principal); M54.16 Radiculopathy, lumbar region | CPT/HCPCS: J1100; Q9967 ==

== ENCOUNTER 2018-09-17 17:31 | Inpatient (IN) | payer MEDICARE, BC ==
[2018-09-17] VITALS (141 sets, daily range): O2SAT 64–100
[~2018-09-17] VITALS: Ht 165.1 cm; Wt 57.9 kg
[~2018-09-17 17:31] MED LIST changes: +CORDARONE200 MG/TAB PO; +COREG 6.256.25 MG/TA PO
[2018-09-17 17:47] LABS: BASO # 0.1 (0.0-0.2); BASO % 0.9 % (0.0-2.0); EOS # 0.9 (0.0-0.7); EOS % 13.3 % (0-4.0); GRAN # 4.2 (1.4-6.5); GRAN % 65.4 % (42.2-75.2); LYMPH # 0.6 (1.2-3.4); LYMPH % 8.7 % (20.0-51.0); MEAN CELL VOLUME 92 fl (80.0-100.0); MEAN CORPUSCULAR HGB CONC 31 g/dl (33.0-37.0); MEAN PLATELET VOLUME 9.4 fl (7.4-10.4); MONO # 0.7 (0.1-0.6); MONO % 11.1 % (1.7-9.3); PLATELET COUNT 285 K/mm3 (130-400); RED BLOOD COUNT 3.35 M/mm3 (4.20-5.60); REDCELL DISTRIBUTION WIDTH-CV 14.8 % (11.5-14.5)
[2018-09-17 17:49] LABS: HEMATOCRIT 30.8 % (42.0-52.0); HEMOGLOBIN 9.6 g/dl (13.5-18.0); MEAN CORPUSCULAR HEMOGLOBIN 29 pg (27.0-31.0)
[2018-09-17 18:04] LABS: ALBUMIN 3.6 gm/dL (3.5-5.0); BILIRUBIN,TOTAL 0.4 mg/dL (0.0-1.0); CALCIUM 9.1 mg/dL (8.4-10.2); MAGNESIUM 2.6 mg/dL (1.6-2.3); PHOSPHOROUS 6.8 mg/dL (2.5-4.5); TOTAL PROTEIN 6.9 gm/dL (6.4-8.2)
[2018-09-17 18:06] LABS: CREATININE, serum 5.87 mg/dL (0.66-1.25); POTASSIUM 7.1 mmol/L (3.4-5.0)
[2018-09-17 18:14] LABS: TROPONIN-I 0.032 ng/mL (0.000-0.035)
[2018-09-17] MEDS ORDERED: ALDACTONE 25MG25 M1 PO (18:23)
[2018-09-17 19:30] LABS: COLLECTION METHOD CLEAN CATCH
[2018-09-17 19:47] LABS: CREATININE, serum 5.38 mg/dL (0.66-1.25)
[2018-09-17 19:48] LABS: MUCOUS Present /lpf; PH 6 (5-8); SQUAMOUS EPITHELIAL 0-2 /hpf; URINE APPEARANCE Clear; URINE BACTERIA None Seen /hpf; URINE BILIRUBIN Negative (NEGATIVE); URINE BLOOD Negative (NEGATIVE); URINE COLOR Yellow; URINE GLUCOSE Negative (NEGATIVE); URINE KETONE Negative (NEGATIVE); URINE LEUKOCYTE ESTERASE Negative (NEGATIVE); URINE NITRATE Negative (NEGATIVE); URINE PROTEIN(semi-quant) Negative (NEGATIVE); URINE RBC 0-2 /hpf; URINE UROBILINOGEN Negative (NEGATIVE); URINE WBC 0-2 /hpf
[2018-09-17 19:48] LABS: POTASSIUM 6.2 mmol/L (3.4-5.0)
--- NOTE | 2018-09-17 20:11 | NUR ---
Pt admitted to ICU bed 1 from ED. Pt arrived via stretcher and placed on maintenance worker house trailer. Vitals stable upon arrival. Family present on admission to unit. Denies any complaints or concerns. Dr. Ansari at bedside for admission.
[2018-09-17 21:22] LABS: INR 0.9 (0.8-3.0); PROTHROMBIN TIME 10.6 SECONDS (9.7-12.8)
[2018-09-17 21:24] LABS: PARTIAL THROMBOPLASTIN TIME 34.4 SECONDS (26.0-37.0)
[2018-09-17 21:28] LABS: IRON,SERUM 76 ug/dL (35-150)
[2018-09-17 21:38] LABS: TOTAL IRON BINDING CAPACITY 202 ug/dL (261-462)
[2018-09-17 22:05] LABS: FERRITIN 289 ng/mL (18-464)
[2018-09-18] VITALS (421 sets, daily range): BP systolic 82–157; BP diastolic 44–84; PULSE 43–87; TEMP 97.4–99.7; O2SAT 79–100
--- NOTE | 2018-09-18 00:47 | NUR ---
Admission assessment complete at this time. Plan of care reviewed at bedside with patient et family. Additional time taken to address any other needs or concerns. Vitals stable at this time. Denies pain or any other discomfort. Will continue to monitor.
--- NOTE | 2018-09-18 04:00 | NUR ---
Shift reassessment complete at this time. No changes from previous assessment. Vitals stable at this time. Denies pain or any other discomfort. Will continue to monitor.
[2018-09-18 05:50] LABS: BASO % 0.3 % (0.0-2.0); EOS # 0.7 (0.0-0.7); EOS % 10.9 % (0-4.0); GRAN % 74.3 % (42.2-75.2); LYMPH # 0.3 (1.2-3.4); MEAN CELL VOLUME 91 fl (80.0-100.0); MEAN CORPUSCULAR HGB CONC 32 g/dl (33.0-37.0); MONO # 0.6 (0.1-0.6); MONO % 8.9 % (1.7-9.3); PLATELET COUNT 256 K/mm3 (130-400); RED BLOOD COUNT 3.39 M/mm3 (4.20-5.60)
[2018-09-18 05:54] LABS: HEMATOCRIT 30.7 % (42.0-52.0); HEMOGLOBIN 9.7 g/dl (13.5-18.0); MEAN CORPUSCULAR HEMOGLOBIN 29 pg (27.0-31.0)
[2018-09-18 06:01] LABS: ALBUMIN 3.3 gm/dL (3.5-5.0); CALCIUM 9.1 mg/dL (8.4-10.2); PHOSPHOROUS 6.7 mg/dL (2.5-4.5)
[2018-09-18 06:03] LABS: CREATININE, serum 5.4 mg/dL (0.66-1.25); POTASSIUM 6.2 mmol/L (3.4-5.0)
--- NOTE | 2018-09-18 07:00 | NUR ---
Bedside report received from RAUL Ambrocio.
--- NOTE | 2018-09-18 07:25 | NUR ---
Bedside report given to RAUL Kirkland.
--- NOTE | 2018-09-18 07:35 | NUR ---
Assessment complete, patient reports pain to lower extremity, requesting pain medication, given. Patient NPO for procedure. Call light within reach.
--- NOTE | 2018-09-18 10:09 | NUR ---
Patient assisted to bedside commode, AM care complete, back to bed, call light within reach.
--- NOTE | 2018-09-18 11:46 | NUR ---
Patient taken to OR via bed.
--- NOTE | 2018-09-18 12:26 | NUR ---
Patient back from procedure.
--- NOTE | 2018-09-18 12:45 | NUR ---
Patient taken back to dialysis via bed.
--- NOTE | 2018-09-18 14:42 | NUR ---
Aranesp and Nulecit both given in dialysis.
--- NOTE | 2018-09-18 15:00 | NUR ---
Back to room from dialysis.
--- NOTE | 2018-09-18 15:00 | NUR ---
Report called to RAUL Talavera.
--- NOTE | 2018-09-18 15:11 | NUR ---
Daughter Esther, was called and updated on new room assignment ([id number].)
--- NOTE | 2018-09-18 15:35 | NUR ---
Patient transferred to [facility] via bed. RAUL Talavera in room to greet patient.
--- NOTE | 2018-09-18 15:45 | NUR ---
pt arrived to unit, oriented to room, med rec reviewed and physical assessment completed. Lungs are clear throughout with CC in bases, pt on RA and denies SOB,bowel sounds active but abdomen is concave and pt malnourished. Dialysis cath to Rt chest surrounding tissue is free of redness/swelling, dressing is clean, dry and intact. Marshall is gravity draining clear yellow urine. Pt A+Ox3, pleasant, denies pain except for tenderness to bilat lower extremity: pt has large pink open blisters on bilat lower legs. family at bedside, call light in reach,
--- NOTE | 2018-09-18 17:21 | NUR ---
This RN removed catarino bandage and applied mepilex to left LE over large 3 inch open blister, mepilex to rt LE over three smaller burst blisters, and gauze over unpopped blister to medial rt ankle. Sock gently applied over both. Pt c/o pain in joints of toes. Mobility has no issues, cap refill brisk, no signs of circulatory compromise. Pt given several warm blankets, denies further needs. ate eggs and lopez for dinner, water at bedside, daughter went home, call light in reach
--- NOTE | 2018-09-18 18:56 | NUR ---
Report given to Adenike CARTER, pt resting at this time, call jorge grady
--- NOTE | 2018-09-18 19:47 | NUR ---
ASSISTANT TERMINAL MANAGER reports patient blood pressure 90/53, taken manually 82/50. Attempted repositioning patient. Blood pressure remains the same. Contacted Dr. Ansari. Stop Coreg, NS fluid bolus of 500ml at 50ml/hr. Decrease [place] from 7.5mg to 5mg Q6H. Orders read back.
--- NOTE | 2018-09-18 19:54 | NUR ---
Resting in bed. Assessment complete. Lungs clear. Heart sounds normal. Pulses strong. Alert and orientated. Blisters present bilateral lower legs, covered with dressings. Stage 2 to left buttock, open blister. Open to air. Reports mild foot pain. Denies other needs at this time. Call light in reach.
--- NOTE | 2018-09-18 23:51 | NUR ---
Resting in bed. Denies needs at this time. Blood pressure improved. Pulse apically 48. Will monitor.
[2018-09-19 04:39] VITALS: BP 114/46; PULSE 88
--- NOTE | 2018-09-19 06:14 | NUR ---
Taken to dialysis at 0555. Updated dialysis nurse regarding fluid bolus and low BP at beginning of shift. Otherwise patient had uneventful night. Denied needs at time of transport to dialysis.
[2018-09-19 06:34] LABS: BASO % 0.4 % (0.0-2.0); EOS # 0.4 (0.0-0.7); GRAN # 5.8 (1.4-6.5); GRAN % 80.6 % (42.2-75.2); LYMPH # 0.4 (1.2-3.4); LYMPH % 5.7 % (20.0-51.0); MEAN CELL VOLUME 92 fl (80.0-100.0); MEAN CORPUSCULAR HGB CONC 31 g/dl (33.0-37.0); MEAN PLATELET VOLUME 9.1 fl (7.4-10.4); MONO # 0.5 (0.1-0.6); MONO % 6.9 % (1.7-9.3); PLATELET COUNT 216 K/mm3 (130-400); RED BLOOD COUNT 3.25 M/mm3 (4.20-5.60); REDCELL DISTRIBUTION WIDTH-CV 14.9 % (11.5-14.5)
[2018-09-19 06:35] LABS: HEMATOCRIT 29.8 % (42.0-52.0); HEMOGLOBIN 9.2 g/dl (13.5-18.0); MEAN CORPUSCULAR HEMOGLOBIN 28 pg (27.0-31.0)
[2018-09-19 06:42] LABS: ALBUMIN 2.8 gm/dL (3.5-5.0); CALCIUM 8.4 mg/dL (8.4-10.2); CREATININE, serum 2.8 mg/dL (0.66-1.25); PHOSPHOROUS 3.5 mg/dL (2.5-4.5); POTASSIUM 3.7 mmol/L (3.4-5.0)
[2018-09-19 08:36] VITALS: BP 132/65; PULSE 85; TEMP 97.8
--- NOTE | 2018-09-19 08:54 | NUR ---
Assessment completed at this time, alert/oriented, vital signs stable, he just got back to his room from dialysis, he reports feeling very tired now and has no energy, denies any pain or discomfort, heart RRR, lungs CTA, denies wanting any breakfast and just wants to take a nap at this time, will continue to monitor
--- NOTE | 2018-09-19 11:03 | NUR ---
Patient lives at home alone in [place], [place] and ultimately would desire to return home but alternative options will depend on patient's recovery and doctor's recommendation as the patient recently had a 1 month stay in a local senior living which was about 3 weeks ago. Patient is semi-independent with daily living activities yet receives support and help from his daughter (Esther) for meals, medications, and help with getting to doctor's appointments or running errands. 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 His primary care physician is Dr. Jamison Petty and also receives medical care from Kosta Ansari, Jada Esqueda, and Ascencion Cota. Patient recently started dialysis for his hyperkalemia diagnosis. His pharmacy is [facility] and he does have advance directives completed. health services information specialist will follow as needed.
[2018-09-19 12:16] VITALS: BP 120/62; PULSE 87; TEMP 98.2
[2018-09-19 16:18] VITALS: BP 117/87; PULSE 79; TEMP 98.4
[2018-09-19 19:19] VITALS: BP 108/49; PULSE 79; TEMP 98.3
--- NOTE | 2018-09-19 20:23 | NUR ---
Resting in bed. Assessment complete. Alert and orientated. Lungs clear. Bowels active. Heart sounds normal. No edema noted. Blisters to bilateral lower legs, covered with dressing, CDI. Left buttock open blister. Denies pain. Denies needs at this time. Call light in reach.
[2018-09-19 23:18] VITALS: BP 127/80; PULSE 82; TEMP 98
--- NOTE | 2018-09-19 23:31 | NUR ---
Patient has not urinated after collier removal at this time. Provided glass of water. Patient reports "I have never really had the urge to pee my entire life." Educated patient on purpose to needing to urinate. Voiced understanding. Will monitor.
--- NOTE | 2018-09-20 01:00 | NUR ---
No urination since collier removal. Bladder scanned patient. 160ml present. Patient unable to urinate at this time. Will continue to monitor closely.
[2018-09-20 03:33] VITALS: BP 150/60; PULSE 71; TEMP 98.6
--- NOTE | 2018-09-20 05:30 | NUR ---
Still unable to urinate. Bladder scanner reading 180-211ml in bladder. Patient states "I just don't feel like I need to pee." Will continue to closely monitor. Otherwise uneventful night. Watching television this AM. Call light in reach. Will monitor.
[2018-09-20 06:02] LABS: BASO # 0.1 (0.0-0.2); EOS # 0.2 (0.0-0.7); EOS % 3.8 % (0-4.0); GRAN % 76.3 % (42.2-75.2); LYMPH # 0.4 (1.2-3.4); MEAN CELL VOLUME 94 fl (80.0-100.0); MEAN CORPUSCULAR HGB CONC 30 g/dl (33.0-37.0); MEAN PLATELET VOLUME 9.2 fl (7.4-10.4); MONO # 0.5 (0.1-0.6); MONO % 9.9 % (1.7-9.3); PLATELET COUNT 201 K/mm3 (130-400); RED BLOOD COUNT 3.23 M/mm3 (4.20-5.60); REDCELL DISTRIBUTION WIDTH-CV 14.9 % (11.5-14.5)
[2018-09-20 06:05] LABS: HEMATOCRIT 30.4 % (42.0-52.0); HEMOGLOBIN 9.1 g/dl (13.5-18.0); MEAN CORPUSCULAR HEMOGLOBIN 28 pg (27.0-31.0)
[2018-09-20 06:19] LABS: ALBUMIN 2.9 gm/dL (3.5-5.0); CALCIUM 8.7 mg/dL (8.4-10.2); CREATININE, serum 2.78 mg/dL (0.66-1.25); PHOSPHOROUS 4.1 mg/dL (2.5-4.5); POTASSIUM 3.5 mmol/L (3.4-5.0)
[2018-09-20 07:36] VITALS: BP 132/74; PULSE 81; TEMP 98.8
--- NOTE | 2018-09-20 08:39 | NUR ---
Pt taken to dialysis, this am he is A+Ox3, standby to chair from bed. Denies pain.
--- NOTE | 2018-09-20 10:18 | NUR ---
TESSA met with the patient's daughter, Emmy, to review discharge plan. The patient's daughter reports that she and the patient are interested in SNF upon discharge. TESSA presented and explained the patient choice form. The patient's daughter reports that the patient has been to [facility] in [facility] past, but that they would like to speak to [facility] before making a decision on preference. Patient choice form signed by the patient's daughter. TESSA has contacted and faxed a referral to [facility] and Keith Blank, at [facility], to come up to this hospital this morning and speak to the patient's daughter. TESSA to continue to follow.
--- NOTE | 2018-09-20 10:51 | NUR ---
Initial visit attempt;Patient out of room, Trackman spoke with his daughter Esther and along with wishing her well let her know [facility] is available.
--- NOTE | 2018-09-20 12:00 | NUR ---
Pt returned from dialysis, A+Ox3, pleasant. Physical assessment completed. INT to RFA free of redness, swelling. Rt dialysis catheter site without redness, swelling, and dressing is CDI. Bilat lower legs have open pink popped blisters, oozing serosanguinous drainage. This RN replaced mepilex with fresh pads. Pedal pulses 2+ bilaterally. Pt denies further needs, will continue to moniutor, call light in reach
[2018-09-20 12:35] VITALS: BP 151/68; PULSE 76; TEMP 97.9
--- NOTE | 2018-09-20 13:51 | NUR ---
Dasha, at [facility], reports that they are unable to accept the patient. SW to inform the patient and patient's daughter and continue to follow.
--- NOTE | 2018-09-20 14:45 | NUR ---
Pt denies having voided since Marshall came out last night. Pt states he has had the urge to go twice but then "the urge went away before I could do anything". This RN bladder scanned him, residual found of [address] Sams who gave orders for Marshall to be reinserted. Coudet catheter inserted, baloon inflated with 9 cc sterile water, immediate return of 160 cc clear yellow urine. Pt's dinner ordered and he denies further needs
--- NOTE | 2018-09-20 14:49 | NUR ---
Abhay, at [facility], reports that they can accept the patient for a skilled stay. SW to inform the patient and patient's daughter and continue to follow.
[2018-09-20 15:15] VITALS: BP 132/65; PULSE 70; TEMP 98.7
[2018-09-20 19:25] VITALS: BP 113/76; PULSE 68; TEMP 98
--- NOTE | 2018-09-20 19:29 | NUR ---
Report given to Charmaine Schreiber, pt denies needs, lying in bed resting
--- NOTE | 2018-09-20 19:47 | NUR ---
Patient resting in bed, finished with dinner. Denies pain. Assessment completed, VSS. Meplex dressing to lateral shins, blistering. IV site free of complications. Stage II ulcer on left buttock. Dialysis catheter site C/D/I. No further needs at this time.
[2018-09-20 23:34] VITALS: BP 115/59; PULSE 79; TEMP 98.6
[2018-09-21 02:40] VITALS: BP 117/69; PULSE 87; TEMP 98.5
--- NOTE | 2018-09-21 05:02 | NUR ---
Patient slept most of the night. Marshall catheter in place. No pain, VSS. Alert and oriented x4. No further needs at this time.
[2018-09-21 06:08] LABS: BASO % 0.4 % (0.0-2.0); EOS # 0.3 (0.0-0.7); EOS % 3.8 % (0-4.0); GRAN # 6.3 (1.4-6.5); GRAN % 80.5 % (42.2-75.2); LYMPH # 0.5 (1.2-3.4); MEAN CELL VOLUME 94 fl (80.0-100.0); MEAN CORPUSCULAR HGB CONC 31 g/dl (33.0-37.0); MEAN PLATELET VOLUME 9.6 fl (7.4-10.4); MONO # 0.7 (0.1-0.6); MONO % 8.8 % (1.7-9.3); PLATELET COUNT 205 K/mm3 (130-400); RED BLOOD COUNT 3.38 M/mm3 (4.20-5.60); REDCELL DISTRIBUTION WIDTH-CV 14.5 % (11.5-14.5)
[2018-09-21 06:09] LABS: HEMATOCRIT 31.6 % (42.0-52.0); HEMOGLOBIN 9.7 g/dl (13.5-18.0); MEAN CORPUSCULAR HEMOGLOBIN 29 pg (27.0-31.0)
[2018-09-21 06:15] LABS: ALBUMIN 3.1 gm/dL (3.5-5.0); CREATININE, serum 2.46 mg/dL (0.66-1.25); PHOSPHOROUS 2.8 mg/dL (2.5-4.5); POTASSIUM 3.8 mmol/L (3.4-5.0)
--- NOTE | 2018-09-21 06:48 | NUR ---
Report given to RAUL Talavera.
[2018-09-21 08:07] VITALS: BP 130/52; PULSE 75; TEMP 99.1
--- NOTE | 2018-09-21 08:30 | NUR ---
pT is A+Ox3, pleasant, denies pain and SOB. Physical assessment completed. he is far more alert and conversive today, with improved facial color from yesterday. Marshall is gravity draining clear yellow urine. INT to RA free of redness and swelling. BLE has open moist pink popped blisters/wounds, mepilex applied to large 3 inch wound on LLE, and over three smaller wounds to RLE. Pt will c/o "deep cold ache in the bone" in his toes at times, norco and warm blanket soothe it although he states the pain never goes away, and he has seen specialists for this. pt provided iwth bed bath, sat up in chair at bedside, clean linen change provided. Call light in reach, no furthe rneeds
[2018-09-21 11:09] VITALS: BP 118/55; PULSE 75; TEMP 99.1
--- NOTE | 2018-09-21 13:14 | NUR ---
Fabby, at [facility], contacted SW to inform that after furter evaluation; they are unable to accept the patient. SW to inform the patient and patient's daughter and continue to follow.
--- NOTE | 2018-09-21 13:39 | NUR ---
TESSA contacted the patient's daughter, Emmy, to update on referrals and to discuss other SNF options. The patient's daughter was interested in [facility]. TESSA has contacted and faxed a referral to Hank at [facility]. SW awaiting their screening.
[2018-09-21 15:49] VITALS: BP 116/58; PULSE 77; TEMP 98.1
--- NOTE | 2018-09-21 18:11 | NUR ---
pt had uneventful shift, vitals remain stable, no dialysis today, K 3.8, pt denies SOB and has not asked for pain meds. Dressing to BLE changed with fresh mepilex, wound beds are pink and moist, regranulating, no odor and no discharge. pt sat up in bedside chair for most of day, walked with PT. Ate much better than yesterday. INT free of redness and swelling, dialysis catheter dressing is CDI, collier continues to drain clear yellow urine although very low volume. No further needs, call light in reach
--- NOTE | 2018-09-21 19:01 | NUR ---
Report given to Adenike CARTER, pt denies needs, resting in bed
[2018-09-21 19:17] VITALS: BP 111/58; PULSE 71; TEMP 98.5
--- NOTE | 2018-09-21 22:05 | NUR ---
Assessed at this time. Denies having pain and discomfort. Patient has been scratching at skin. Skin is dry. Cream applied, and patient reports that it has helped some. Multiple small areas to BUE, BLE, and back that are from patient scratching at areas. Mepilex to BLE over open areas. No active drainage at this time. Indwelling collier catheter is patent, and draining dark yellow, clear urine via dependetn drainge. New stat lock applied to right inner thigh. Peripheral IV to right forearm is patent. Dialysis catheter to right chest with bruit and thrill. Gauze and tegaderm over site is clean, dry, and intact.
[2018-09-22] VITALS (7 sets, daily range): BP systolic 92–124; BP diastolic 47–64; PULSE 67–86; TEMP 97.2–98.8
--- NOTE | 2018-09-22 00:44 | NUR ---
Resting in bed with eyes closed at this time.
--- NOTE | 2018-09-22 06:17 | NUR ---
Voiced no complaints during the night until around 0430. At that time patient complained of a headache, rated as a 5. Given PRN Maitland per orders. Reports pain is at a 3 at this time. Awake since approximately 0330 watching TV. Reports this is his normal for him.
[2018-09-22 06:31] LABS: BASO % 0.4 % (0.0-2.0); EOS # 0.3 (0.0-0.7); GRAN # 6.4 (1.4-6.5); GRAN % 81.3 % (42.2-75.2); LYMPH # 0.3 (1.2-3.4); LYMPH % 4.2 % (20.0-51.0); MEAN CELL VOLUME 93 fl (80.0-100.0); MEAN CORPUSCULAR HGB CONC 31 g/dl (33.0-37.0); MEAN PLATELET VOLUME 9.7 fl (7.4-10.4); MONO # 0.8 (0.1-0.6); MONO % 9.7 % (1.7-9.3); PLATELET COUNT 194 K/mm3 (130-400); RED BLOOD COUNT 2.99 M/mm3 (4.20-5.60); REDCELL DISTRIBUTION WIDTH-CV 14.5 % (11.5-14.5)
[2018-09-22 06:32] LABS: HEMATOCRIT 27.7 % (42.0-52.0); HEMOGLOBIN 8.7 g/dl (13.5-18.0); MEAN CORPUSCULAR HEMOGLOBIN 29 pg (27.0-31.0)
[2018-09-22 06:41] LABS: ALBUMIN 2.8 gm/dL (3.5-5.0); CALCIUM 8.6 mg/dL (8.4-10.2); CREATININE, serum 3.05 mg/dL (0.66-1.25); PHOSPHOROUS 2.4 mg/dL (2.5-4.5); POTASSIUM 3.6 mmol/L (3.4-5.0)
--- NOTE | 2018-09-22 08:09 | NUR ---
Pt AAOx3, sitting up on side of bed "waiting for them to take me to dialysis". Pt denies breakfast order. Call light within reach. No complaints at this time
--- NOTE | 2018-09-22 14:28 | NUR ---
The patient's daughter, Emmy, contacted TESSA to review discharge plan. The patient's daughter reports that she and the patient are now interested in [facility], but would still prefer [facility] as a second preference. TESSA has contacted and consulted [facility] Director, Kerry. TESSA also contacted and faxed updates to Hank at [facility]. TESSA to continue to follow.
[2018-09-22 14:33] LABS: HEPATITIS B CORE AB,TOTAL Negative (()); HEPATITIS B SURFACE ANTIBODY <2.0 (()); HEPATITIS B SURFACE ANTIGEN Negative (Negative); HEPATITIS C VIRUS ANTIBODY Negative (Negative)
--- NOTE | 2018-09-22 19:59 | NUR ---
Patient assessed. Had been sitting in recliner, and assisted into bed as requested. Denies having pain and discomfort at this time. Peripheral IV to right forearm patent. Dialysis catheter to right chest. Gauze and tegaderm to area are CDI. Indwelling collier catheter patent, and draining clear yellow urine via dependent drainage. Voices no needs or concerns at this time.
--- NOTE | 2018-09-22 23:48 | NUR ---
Resting in bed with HOB elevated. Appears to be sleeping at this time. Call light is within reach.
[2018-09-23 03:30] VITALS: BP 92/63; PULSE 76; TEMP 98.4
--- NOTE | 2018-09-23 03:53 | NUR ---
Resting in bed with eyes closed at this time. Call light is within reach.
--- NOTE | 2018-09-23 06:09 | NUR ---
Patient has been sleeping on and off throughout the night. Denies having pain and discomfort. Resting in bed with eyes closed at this time. Call light is within reach.
[2018-09-23 06:14] LABS: BASO % 0.3 % (0.0-2.0); EOS # 0.2 (0.0-0.7); EOS % 3.3 % (0-4.0); GRAN # 6.1 (1.4-6.5); GRAN % 82.3 % (42.2-75.2); LYMPH # 0.4 (1.2-3.4); LYMPH % 5.3 % (20.0-51.0); MEAN CELL VOLUME 93 fl (80.0-100.0); MEAN CORPUSCULAR HGB CONC 31 g/dl (33.0-37.0); MONO # 0.6 (0.1-0.6); MONO % 8.4 % (1.7-9.3); PLATELET COUNT 203 K/mm3 (130-400); RED BLOOD COUNT 3.23 M/mm3 (4.20-5.60); REDCELL DISTRIBUTION WIDTH-CV 14.6 % (11.5-14.5)
[2018-09-23 06:17] LABS: HEMATOCRIT 30.1 % (42.0-52.0); HEMOGLOBIN 9.2 g/dl (13.5-18.0); MEAN CORPUSCULAR HEMOGLOBIN 28 pg (27.0-31.0)
[2018-09-23 06:30] LABS: CREATININE, serum 2.39 mg/dL (0.66-1.25); PHOSPHOROUS 2.3 mg/dL (2.5-4.5); POTASSIUM 3.8 mmol/L (3.4-5.0)
[2018-09-23 07:31] VITALS: BP 130/66; PULSE 80; TEMP 97.9
--- NOTE | 2018-09-23 07:48 | NUR ---
Pt AAOx3, complaining of a headache currently. No other complaints. Call light, phone and menu within reach. Protein shake provided.
--- NOTE | 2018-09-23 09:15 | NUR ---
Hank, at [facility], reports that they can accept the patient for a skilled stay. SW to inform the patient and patient's daughter.
--- NOTE | 2018-09-23 09:22 | NUR ---
Kerry, with [facility], reports that they are unable to accept the patient.
[2018-09-23 11:17] VITALS: BP 105/48; PULSE 77; TEMP 97.5
[2018-09-23] MEDS ORDERED: LASIX 20MG TABL20 MG PO (12:11)
[2018-09-23] MEDS ORDERED: NEURONTIN100 MG/CAP PO (12:12)
--- NOTE | 2018-09-23 13:33 | NUR ---
TESSA contacted the patient's daughter, Emmy, to update on referrals. The patient's daughter reports that she is agreeable for the patient to transfer to [facility] upon discharge. SW updated the patient and he was also in agreeance to the plan. The patient is to discharge today, 09/23, to [facility] for a skilled stay. Transportation was set for around [id number], via [facility]. TESSA informed the patient, patient's nurse, and the patient's daughter via phone. They were all in agreeance. TESSA also explained the IM form to the patient's daugher, via phone. The patient's daughter gave TESSA her verbal consent. A copy was provided to the patient. No additional needs at this time.
[2018-09-23 16:00] VITALS: BP 141/72; PULSE 62; TEMP 97.7
--- NOTE | 2018-09-23 16:25 | NUR ---
Pt discharged at this time. RF INT discontinued with the catheter tip intact. Pt escourted out via WC with tech. Marie
[2018-09-23] MEDS ORDERED: NORCO 325 MG-51 TAB PO (17:53)
== END 2018-09-23 16:26 | DRG 673 ==
LOC: COL.ER 17:31 → ICU 18:33 → MEDICAL 09-18 15:35
PROVIDERS: Emergency Medicine; Internal Medicine; Surgery; ADMIT Internal Medicine Nephrology
PROC: 02HV33Z Insertion of Infusion Device into Superior Vena Cava, Percutaneous Approach (ICD-10-PCS; 2018-09-18)
PROC: 5A1D70Z Performance of Urinary Filtration, Intermittent, Less than 6 Hours Per Day (ICD-10-PCS; 2018-09-18)
PROC: 0JH60XZ Insertion of Tunneled Vascular Access Device into Chest Subcutaneous Tissue and Fascia, Open Approach (ICD-10-PCS; principal; 2018-09-18 10:30)
PROC: 5A1D70Z Performance of Urinary Filtration, Intermittent, Less than 6 Hours Per Day (ICD-10-PCS; 2018-09-19)
PROC: 5A1D70Z Performance of Urinary Filtration, Intermittent, Less than 6 Hours Per Day (ICD-10-PCS; 2018-09-20)
PROC: 5A1D70Z Performance of Urinary Filtration, Intermittent, Less than 6 Hours Per Day (ICD-10-PCS; 2018-09-22)
DX: N17.9 Acute kidney failure, unspecified (principal); E43 Unspecified severe protein-calorie malnutrition; R06.3 Periodic breathing; I42.9 Cardiomyopathy, unspecified; I13.2 Hypertensive heart and chronic kidney disease with heart failure and with stage 5 chronic kidney disease, or end stage renal disease; I50.22 Chronic systolic (congestive) heart failure; Z66 Do not resuscitate; L97.229 Non-pressure chronic ulcer of left calf with unspecified severity; E87.5 Hyperkalemia; N18.6 End stage renal disease; E11.22 Type 2 diabetes mellitus with diabetic chronic kidney disease; M54.32 Sciatica, left side; M54.31 Sciatica, right side; E11.21 Type 2 diabetes mellitus with diabetic nephropathy; I48.0 Paroxysmal atrial fibrillation; E11.40 Type 2 diabetes mellitus with diabetic neuropathy, unspecified; E11.51 Type 2 diabetes mellitus with diabetic peripheral angiopathy without gangrene; E78.5 Hyperlipidemia, unspecified; F03.90 Unspecified dementia, unspecified severity, without behavioral disturbance, psychotic disturbance, mood disturbance, and anxiety; G20 Parkinson's disease; E83.39 Other disorders of phosphorus metabolism; D50.9 Iron deficiency anemia, unspecified; I49.3 Ventricular premature depolarization; N40.1 Benign prostatic hyperplasia with lower urinary tract symptoms; R33.8 Other retention of urine; E11.622 Type 2 diabetes mellitus with other skin ulcer; Z68.22 Body mass index [BMI] 22.0-22.9, adult
CPT/HCPCS: 87522; C1750; J0610; J0690; J0882; J1644; J1815; J1940; J2250; J2916; J3010; J7030; J7040

== ENCOUNTER → 2018-10-25 | Outpatient (CLI) | payer MEDICARE, BC | LOC: COL.VAS 09:49 | DX: N18.6 End stage renal disease (principal) | CPT/HCPCS: G0365 ==

== ENCOUNTER → 2018-10-27 | Outpatient (CLI) | payer MEDICARE, BC | LOC: MHCPAIN 08:05 | DX: G89.29 Other chronic pain (principal); M47.817 Spondylosis without myelopathy or radiculopathy, lumbosacral region; M54.16 Radiculopathy, lumbar region; M53.3 Sacrococcygeal disorders, not elsewhere classified; M96.1 Postlaminectomy syndrome, not elsewhere classified | CPT/HCPCS: G0463 ==

== ENCOUNTER → 2018-11-01 | Outpatient (CLI) | payer MEDICARE, BC | LOC: MHCPAIN 11:38 | DX: M47.817 Spondylosis without myelopathy or radiculopathy, lumbosacral region (principal); M54.16 Radiculopathy, lumbar region; M79.18 Myalgia, other site | CPT/HCPCS: J1040; J1100; Q9967 ==

== ENCOUNTER → 2018-12-07 | Outpatient (CLI) | payer MEDICARE, BC | LOC: BHSO 10:56 | DX: F06.32 Mood disorder due to known physiological condition with major depressive-like episode (principal) ==

== ENCOUNTER → 2019-01-31 | Outpatient (CLI) | payer MEDICARE, BC | LOC: MHCPAIN 09:03 | DX: G89.29 Other chronic pain (principal); M47.817 Spondylosis without myelopathy or radiculopathy, lumbosacral region; M54.16 Radiculopathy, lumbar region; M53.3 Sacrococcygeal disorders, not elsewhere classified; M96.1 Postlaminectomy syndrome, not elsewhere classified | CPT/HCPCS: G0463 ==

== ENCOUNTER 2019-03-12 18:06 | Inpatient (IN) | payer MEDICARE, BC ==
[~2019-03-12] VITALS: Ht 157.5 cm; Wt 62.9 kg
[2019-03-12 18:50] LABS: ALANINE AMINOTRANSFERASE < 6 U/L (21-72); ALBUMIN 3.1 gm/dL (3.5-5.0); ALKALINE PHOSPHATASE 88 U/L (50-136); ANION GAP 8 mmol/L (7-16); AST,SGOT 21 U/L (15-37); BILIRUBIN,TOTAL 0.4 mg/dL (0.0-1.0); BLOOD UREA NITROGEN 19 mg/dL (9-20); CALCIUM 8.6 mg/dL (8.4-10.2); CARBON DIOXIDE 25 mmol/L (22-30); CHLORIDE 107 mmol/L (98-107); CREATININE, serum 3.03 (0.66-1.25); GLUCOSE 124 mg/dL (74-106); LIPASE 52 U/L (23-300); POTASSIUM 3.9 mmol/L (3.4-5.0); SODIUM 139 mmol/L (137-145); TOTAL PROTEIN 6.2 gm/dL (6.4-8.2)
[2019-03-12 18:52] LABS: BASO % 0.4 % (0.0-2.0); EOS # 0.2 (0.0-0.7); EOS % 3.1 % (0-4.0); GRAN # 5.3 (1.4-6.5); GRAN % 77.9 % (42.2-75.2); HEMOGLOBIN 11.3 g/dl (13.5-18.0); LYMPH # 0.5 (1.2-3.4); LYMPH % 7.2 % (20.0-51.0); MEAN CELL VOLUME 100 fl (80.0-100.0); MEAN CORPUSCULAR HEMOGLOBIN 31 pg (27.0-31.0); MEAN CORPUSCULAR HGB CONC 32 g/dl (33.0-37.0); MEAN PLATELET VOLUME 9.3 fl (7.4-10.4); MONO # 0.7 (0.1-0.6); MONO % 10.2 % (1.7-9.3); PLATELET COUNT 205 K/mm3 (130-400); REDCELL DISTRIBUTION WIDTH-CV 15.6 % (11.5-14.5)
[2019-03-12 18:53] LABS: HEMATOCRIT 35.9 % (42.0-52.0)
[2019-03-12 19:00] LABS: TROPONIN-I 0.013 ng/mL (0.000-0.035)
[2019-03-12 21:39] VITALS: BP 147/68; PULSE 66; TEMP 98.3
--- NOTE | 2019-03-12 22:30 | NUR ---
PT ADMITTED WITH Dx OF UNRESOLVED BACK PAIN. PT IS ON NORCO AT HOME. PT RESTING COMFORTABLY AFTER BEING MEDICATED IN E.D. SEE 5 PAGE ASSESSMENT.
[2019-03-12 23:48] VITALS: BP 132/55; PULSE 72; TEMP 98.1
[2019-03-13 04:25] VITALS: BP 125/58; PULSE 74; TEMP 98.4
--- NOTE | 2019-03-13 05:19 | NUR ---
PT HAS BEEN MEDICATED x1 SO FAR THIS SHIFT FOR BACK/NECK/SHOULDER PAIN. PT REFUSED NORCO STATING IT HAD NOT BEEN HELPING HIM LATELY AT HOME.
[2019-03-13 08:39] VITALS: BP 137/61; PULSE 74; TEMP 98.7
[2019-03-13 12:19] VITALS: BP 134/51; PULSE 66; TEMP 98.7
--- NOTE | 2019-03-13 12:39 | NUR ---
Patient assisted to chair. He was steady up on his feet. He has little appetite, nephro shakes ordered. Assessment completed by Maite CARTER. Agree with assessment. Patient has had One tab norco for neck,shoulder pain, not interested in Iv pain medication at this time. Nathan meléndez.
--- NOTE | 2019-03-13 15:11 | NUR ---
SW met with the patient to discuss a discharge plan. The pt lives alone in [place]. The pt has a wheelchair, walker and cane. Patient reports independence with ADLs. The pt's PCP is Dr. Petty and pt receives medications from [facility] with no difficulties. Patient states his daughter picks up his medications. The pt has advanced directives in the EMR. The pt plans to return home upon discharge. SW will continue to follow to assist with any discharge recommendations.
[2019-03-13 17:05] VITALS: BP 141/59; PULSE 74; TEMP 98.9
--- NOTE | 2019-03-13 17:51 | NUR ---
patient in bed watching tv. alert and oriented x4. patient has been up to chair once today. several family members have visited. complaints of upper back, shoulder, and neck pain. using k-pad to control pain. patient had minimal interest in food. PO foods encouraged.
[2019-03-13 19:24] VITALS: BP 141/74; PULSE 71; TEMP 98.8
[2019-03-14 05:18] VITALS: BP 123/65; PULSE 85; TEMP 98.1
--- NOTE | 2019-03-14 05:47 | NUR ---
PT DOING MUCH BETTER REGARDING PAIN. ONLY 1 NORCO ADMIN. AT [facility]. K-PAD TO NECK AND BACK WAS VERY HELPFUL.
[2019-03-14 07:11] LABS: BASO % 0.6 % (0.0-2.0); EOS # 0.2 (0.0-0.7); EOS % 3.2 % (0-4.0); GRAN # 5.2 (1.4-6.5); GRAN % 79.9 % (42.2-75.2); HEMOGLOBIN 10.6 g/dl (13.5-18.0); LYMPH # 0.5 (1.2-3.4); LYMPH % 7.7 % (20.0-51.0); MEAN CELL VOLUME 100 fl (80.0-100.0); MEAN CORPUSCULAR HEMOGLOBIN 31 pg (27.0-31.0); MEAN CORPUSCULAR HGB CONC 31 g/dl (33.0-37.0); MEAN PLATELET VOLUME 9.3 fl (7.4-10.4); MONO # 0.5 (0.1-0.6); MONO % 7.7 % (1.7-9.3); PLATELET COUNT 158 K/mm3 (130-400); RED BLOOD COUNT 3.42 M/mm3 (4.20-5.60); REDCELL DISTRIBUTION WIDTH-CV 15.4 % (11.5-14.5)
[2019-03-14 07:21] LABS: HEMATOCRIT 34.2 % (42.0-52.0)
[2019-03-14 07:25] LABS: ALBUMIN 2.7 gm/dL (3.5-5.0); CALCIUM 8.2 mg/dL (8.4-10.2); CREATININE, serum 4.76 (0.66-1.25); PHOSPHOROUS 4.6 mg/dL (2.5-4.5)
[2019-03-14 08:11] VITALS: BP 130/67; PULSE 81; TEMP 98.3
[2019-03-14 12:06] VITALS: BP 131/59; PULSE 72; TEMP 98.3
[2019-03-14 16:50] VITALS: BP 155/64; PULSE 73; TEMP 98.7
--- NOTE | 2019-03-14 18:40 | NUR ---
Report received from Joann CARTER.
--- NOTE | 2019-03-14 18:53 | NUR ---
Dr. Ansari called to ask when pts fistulogram was scheduled for so Dialysis could be planned. Nursing line service supervisor called for this information.
[2019-03-14 19:01] VITALS: BP 132/61; PULSE 67; TEMP 97.6
--- NOTE | 2019-03-14 19:35 | NUR ---
Pt resting with HOB elevated. No distress noted. Pt denies pain. States KPad is controlling back pain. Respirations even and unlabored. Fine crackles auscultated to bilateral lung bases. Abdomen soft, nontender. BS+. L forearm with AV fistula is edematous with large amount of ecchymosis. Pulse strong. R chest tunneled dialysis catheter. R AC INT. Pt denies needs at this time. He is aware that he is NPO after midnight for Fistulogram tomorrow.
--- NOTE | 2019-03-14 21:30 | NUR ---
Dr. Segovia called to verify patients fistulogram for tomorrow.
[2019-03-14 23:59] VITALS: BP 128/53; PULSE 64; TEMP 98.4
[2019-03-15] VITALS (7 sets, daily range): BP systolic 125–167; BP diastolic 58–75; PULSE 59–136; TEMP 98.1–100.2
[2019-03-15 05:45] LABS: BASO % 0.5 % (0.0-2.0); EOS # 0.2 (0.0-0.7); EOS % 3.5 % (0-4.0); GRAN # 4.5 (1.4-6.5); GRAN % 75.2 % (42.2-75.2); HEMOGLOBIN 10.8 g/dl (13.5-18.0); LYMPH # 0.6 (1.2-3.4); LYMPH % 10.4 % (20.0-51.0); MEAN CELL VOLUME 100 fl (80.0-100.0); MEAN CORPUSCULAR HEMOGLOBIN 31 pg (27.0-31.0); MEAN CORPUSCULAR HGB CONC 31 g/dl (33.0-37.0); MEAN PLATELET VOLUME 9.2 fl (7.4-10.4); MONO # 0.6 (0.1-0.6); MONO % 9.4 % (1.7-9.3); PLATELET COUNT 191 K/mm3 (130-400); RED BLOOD COUNT 3.44 M/mm3 (4.20-5.60); REDCELL DISTRIBUTION WIDTH-CV 15.5 % (11.5-14.5)
[2019-03-15 05:47] LABS: HEMATOCRIT 34.5 % (42.0-52.0)
--- NOTE | 2019-03-15 05:54 | NUR ---
Pt resting this AM. No distress noted. Pt denies pain. He has slept periodically throughout the night without any complaints. VSS. No insulin required with accucheck. Pt aware of plan for fistulogram today. He is NPO.
[2019-03-15 05:57] LABS: ALBUMIN 2.8 gm/dL (3.5-5.0); CALCIUM 8.3 mg/dL (8.4-10.2); CREATININE, serum 5.81 (0.66-1.25); PHOSPHOROUS 5.1 mg/dL (2.5-4.5); POTASSIUM 4.2 mmol/L (3.4-5.0)
--- NOTE | 2019-03-15 07:08 | NUR ---
Report given to Nenita CARTER and Maite CARTER.
--- NOTE | 2019-03-15 08:20 | NUR ---
Spoke with Milagros about needs to address VTE-she will talk to Elan
--- NOTE | 2019-03-15 09:08 | NUR ---
patient in bed. alert and oriented x4. used walker to ambulate to sink. patient completed independent oral care and brushed hair. used walker to ambulate to bed. assisted with hygiene using warm bath wipes. foam pad applied to sores on coccyx. bandaid applied to scrath on L forearm. gown changed. lotion applied. new socks applied. k pad in place. patient stated pain 4/10. motrin was given, will reassess pain in 30 min. patient left in bed with bath wipes for pericare.
--- NOTE | 2019-03-15 12:10 | NUR ---
Patient taken to label sewer with Po for his procedure. His daughter updated on plan of care, dialysis nurse made aware, will await his return
--- NOTE | 2019-03-15 12:20 | NUR ---
SEE MERGE REPORT FOR MEDICATION ADMINISTRATION TIMES WELL INTRA/POST SEDATION ASSESSMENTS.
--- NOTE | 2019-03-15 14:04 | NUR ---
Patient in dialysis, dialysis called to report his arrival from pathology laboratory aide
--- NOTE | 2019-03-15 14:16 | NUR ---
Initial visit; Patient thanked Cable Installer Repairer Helper for offering prayer and offring God's blessings.
--- NOTE | 2019-03-15 17:09 | NUR ---
Patient has returned from dialysis. Patient alert & oreinted. Thankful for dinner. Denies the need for pain medication at this time. Using Kpad. Will monitor.
--- NOTE | 2019-03-15 19:30 | NUR ---
Patient sleeping. Bedside report to Shraddha CARTER
--- NOTE | 2019-03-15 19:45 | NUR ---
Report received. 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 Assessement complete. C/O pain to upper back/neck rating 5/10 described as sharp pain with constant ache. Medication options discussed and scheduled motrin given as well as scheduled neurontin. Plan of care discussed-will monitor effectiveness and advance to narcotics if needed. K pad to neck as well-repositioned with pillow support. Bruising noted to L FA around arteriovenous fistula site. R subclavian dialysis cath noted. R FA int flushes without difficulty. Denies any needs at this time. Will monitor.
--- NOTE | 2019-03-16 01:00 | NUR ---
Patient report received from RAUL Llanes at this time. Patient is resting comfortably in bed, watching tv at this time. Reports no needs and no pain at this time.
[2019-03-16 04:05] VITALS: BP 118/57; PULSE 66; TEMP 98.1
--- NOTE | 2019-03-16 07:12 | NUR ---
Patient report given to Abdoul Jones. Patient resting comfortably at this time.
[2019-03-16 07:37] LABS: BASO % 0.6 % (0.0-2.0); EOS # 0.2 (0.0-0.7); EOS % 3.2 % (0-4.0); GRAN # 5.4 (1.4-6.5); GRAN % 78.5 % (42.2-75.2); HEMOGLOBIN 11.4 g/dl (13.5-18.0); LYMPH # 0.5 (1.2-3.4); LYMPH % 7.6 % (20.0-51.0); MEAN CELL VOLUME 100 fl (80.0-100.0); MEAN CORPUSCULAR HEMOGLOBIN 31 pg (27.0-31.0); MEAN CORPUSCULAR HGB CONC 31 g/dl (33.0-37.0); MEAN PLATELET VOLUME 9.9 fl (7.4-10.4); MONO # 0.6 (0.1-0.6); MONO % 8.5 % (1.7-9.3); PLATELET COUNT 189 K/mm3 (130-400); RED BLOOD COUNT 3.63 M/mm3 (4.20-5.60); REDCELL DISTRIBUTION WIDTH-CV 15.5 % (11.5-14.5)
[2019-03-16 07:41] LABS: HEMATOCRIT 36.3 % (42.0-52.0)
[2019-03-16 07:50] LABS: ALBUMIN 2.9 gm/dL (3.5-5.0); CALCIUM 8.2 mg/dL (8.4-10.2); CREATININE, serum 3.71 (0.66-1.25); PHOSPHOROUS 4.2 mg/dL (2.5-4.5); POTASSIUM 4.2 mmol/L (3.4-5.0)
[2019-03-16 07:52] VITALS: BP 111/62; PULSE 81; TEMP 98.8
[2019-03-16 11:29] VITALS: BP 109/53; PULSE 55; TEMP 98.8
--- NOTE | 2019-03-16 14:39 | NUR ---
patient awake in bed. HOB elevated. oriented x4. reports pain of 2. patient request IV to be taken out. waiting on doctors DC orders. patient in bed getting dressed in street clothes.
[2019-03-16 17:13] VITALS: BP 130/60; PULSE 57; TEMP 98.4
[2019-03-16] MEDS ORDERED: MOTRIN 200200 MG/TAB PO (17:52)
--- NOTE | 2019-03-16 19:23 | NUR ---
rounded. Discharge orders obtained. Discharge paperwork reviewed. Int Dc. Patient daughter here to take him home. He denies questions or concerns.
== END 2019-03-16 19:25 | disposition home or self-care (01) | DRG 551 ==
LOC: COL.ER 18:06 → SURG 19:31
PROVIDERS: Emergency Medicine; ADMIT Internal Medicine Nephrology
PROC: B51WYZZ Fluoroscopy of Dialysis Shunt/Fistula using Other Contrast (ICD-10-PCS; principal; 2019-03-15)
PROC: 5A1D70Z Performance of Urinary Filtration, Intermittent, Less than 6 Hours Per Day (ICD-10-PCS; 2019-03-15)
DX: M48.02 Spinal stenosis, cervical region (principal); N18.6 End stage renal disease; I50.22 Chronic systolic (congestive) heart failure; I13.2 Hypertensive heart and chronic kidney disease with heart failure and with stage 5 chronic kidney disease, or end stage renal disease; I42.9 Cardiomyopathy, unspecified; I25.10 Atherosclerotic heart disease of native coronary artery without angina pectoris; E78.00 Pure hypercholesterolemia, unspecified; M85.80 Other specified disorders of bone density and structure, unspecified site; E11.22 Type 2 diabetes mellitus with diabetic chronic kidney disease; F02.80 Dementia in other diseases classified elsewhere, unspecified severity, without behavioral disturbance, psychotic disturbance, mood disturbance, and anxiety; E78.5 Hyperlipidemia, unspecified; D63.1 Anemia in chronic kidney disease; E83.39 Other disorders of phosphorus metabolism; F17.210 Nicotine dependence, cigarettes, uncomplicated; I48.0 Paroxysmal atrial fibrillation; Z99.2 Dependence on renal dialysis; Z79.4 Long term (current) use of insulin; Z79.82 Long term (current) use of aspirin; Z88.1 Allergy status to other antibiotic agents
CPT/HCPCS: J0882; J1644; J2250; J3010; J7030; Q9967

== ENCOUNTER → 2019-04-06 | Outpatient (CLI) | payer MEDICARE, BC ==
--- NOTE | 2019-03-10 14:06 | NUR ---
SPOKE TO PT'S DAUGHTER REGARDING MEDS, ALLERGIES AND PMH. REQUESTED SHE BRING PT IN AT 1230.
--- NOTE | 2019-03-23 13:30 | NUR ---
PT R\S FOR 03/28/19 @1668
[~2019-04-06] VITALS: Ht 165.1 cm; Wt 66.3 kg
[~2019-04-06] MED LIST changes: +MOTRIN 200200 MG/TAB PO
[2019-04-06 10:44] VITALS: BP 101/66; PULSE 73
[2019-04-06 11:25] VITALS: BP 105/65; PULSE 62
== END ==
LOC: COL.RAD 03-11 14:45
DX: N18.6 End stage renal disease (principal)

== ENCOUNTER 2019-04-26 18:24 | Inpatient (IN) | payer MEDICARE, BC ==
[~2019-04-26] VITALS: Ht 157.5 cm; Wt 65.0 kg
[2019-04-26 19:20] LABS: ALBUMIN 2.5 gm/dL (3.5-5.0); BILIRUBIN,TOTAL 0.4 mg/dL (0.0-1.0); CALCIUM 7.6 mg/dL (8.4-10.2); CREATININE, serum 2.99 (0.66-1.25); POTASSIUM 3.6 mmol/L (3.4-5.0); TOTAL PROTEIN 5.2 gm/dL (6.4-8.2)
[2019-04-26] MEDS ORDERED: COLACE 100100 MG/CAP PO (19:25)
[2019-04-26] MEDS ORDERED: ALBUTEROL SULFAT3 M3 IH (19:25)
[2019-04-26] MEDS ORDERED: ATHLETE'S FOOT1% TP (19:27)
[2019-04-26 19:28] LABS: ARTERIAL BLD GAS O2 SATURATION 97.8 % (92-100); ARTERIAL BLD GAS TCO2 CT 25.4; ARTERIAL BLOOD GAS BASE EXCESS -0.9 (-2-2); ARTERIAL BLOOD GAS HCO3 24.2 meq/L (22-26); ARTERIAL BLOOD GAS PCO2 41.6 mmHg (35-45); ARTERIAL BLOOD GAS PO2 116.4 mmHg (80-100); ARTERIAL BLOOD GAS pH 7.38 (7.35-7.45)
[2019-04-26] MEDS ORDERED: NORCO 325 MG-7.1 TAB PO (21:07)
--- NOTE | 2019-04-26 21:15 | NUR ---
Pt arrived to room 315, transfered per stretcher by ED staff. Pt awake, a&o, cooperative c cares. Pt denies pain or other c/o et states he is feeling "better". INT patent. Pt oriented to room, unit policies et current POC. Questions invited et answered, pt verbalized understanding. Pt denies further needs at this time. Call light in reach, bed alarm on. Will continue c admint process.
[2019-04-26 21:24] VITALS: TEMP 98.4
[2019-04-26 22:44] LABS: HEMOGLOBIN 9.7 g/dl (13.5-18.0); MEAN CELL VOLUME 98 fl (80.0-100.0); MEAN CORPUSCULAR HEMOGLOBIN 30 pg (27.0-31.0); MEAN CORPUSCULAR HGB CONC 30 g/dl (33.0-37.0); MEAN PLATELET VOLUME 10.1 fl (7.4-10.4); PLATELET COUNT 218 K/mm3 (130-400); RED BLOOD COUNT 3.26 M/mm3 (4.20-5.60); REDCELL DISTRIBUTION WIDTH-CV 13.7 % (11.5-14.5)
[2019-04-26 22:45] LABS: BAND 1 % (0-10); BASOPHIL 1 % (0-2); EOSINOPHIL 1 % (0-4); LYMPHOCYTE 3 % (20.0-51.0); MYELOCYTE 1 % (0-0); NEUTROPHILS 88 % (42.0-75.2); PLATELET ESTIMATE NORMAL (NORMAL)
[2019-04-26 23:37] VITALS: BP 110/52; PULSE 74; TEMP 97.8
[2019-04-27 03:53] VITALS: BP 101/46; PULSE 82; TEMP 98.8
[2019-04-27 08:02] VITALS: BP 106/54; PULSE 71; TEMP 97.7
--- NOTE | 2019-04-27 09:13 | NUR ---
PT RESTING IN BED DENIES NEEDS AT THIS TIME. PT HAD DIALYSIS YESTERDAY, PT HAS COARSE SOUNDS IN ALL [place].
--- NOTE | 2019-04-27 11:56 | NUR ---
dr. Ansari in to see patient this am see computer for orders.
[2019-04-27 12:13] VITALS: BP 135/52; PULSE 67; TEMP 97.9
--- NOTE | 2019-04-27 15:12 | NUR ---
TESSA met with the patient to discuss discharge plan. The patient resides at [facility] in long-term care. He reports needing some assistance with bathing and has a walker. The patient's PCP is Dr. Jamison Petty. The patient's advanced directives are in EMR. The patient designated his (Etelvina Vasquez) and his daughter (Emmy De La Paz #[phone]). The patient reports that his has Alzheimers and that she is at [facility] now. The back of the patient's DPOA-HC was not scanned in EMR. TESSA contacted and requested a copy of the DPOA-HC from Hank at [facility]. TESSA also faxed updates to Hank at [facility]. Hank reports that she will fax a copy of the DPOA-HC to the medical unit. The patient reports that he plans to return back to [facility] upon discharge. TESSA presented and explained the Patient Choice Form to the patient. The patient verbalized understanding, signed, and he was provided a copy. TESSA to continue to follow.
[2019-04-27 16:18] VITALS: BP 124/65; PULSE 69; TEMP 98.5
--- NOTE | 2019-04-27 17:13 | NUR ---
Pt report received from RAUL Westbrook. Pt laying in bed, denies needs at this time. VSS.
[2019-04-27 20:29] VITALS: BP 131/59; PULSE 74; TEMP 98
--- NOTE | 2019-04-27 21:19 | NUR ---
Resting in bed. Assessment completed. Lungs coarse throughout. Dyspnea with movement. Respiratory contacted for breathing treatment. Bilateral lower leg edema +1. INT right forearm without complications. Left forearm fistula bruit and thrill present. Reports 09/26 headahce. Provided with scheduled motrin. Coccxy erythema present, mepalex in place. Denies needs. Call light in reach. Blood sugar 75. Provided with snack.
[2019-04-27 23:37] VITALS: BP 132/70; PULSE 72; TEMP 97.6
--- NOTE | 2019-04-28 02:15 | NUR ---
Resting in bed. Reports "upset stomach." Provided with crackers. Call light in reach.
--- NOTE | 2019-04-28 04:30 | NUR ---
Resting in bed. Denies needs. Patient states "I wish I was 79 again." Patient desires to be able to walk/ride bike again. States he is considering stopping dialysis. Provided patient emotional support. Will pass information on to next shift to make Dr. Ansari awake.
[2019-04-28 04:38] VITALS: BP 137/65; PULSE 68; TEMP 97.9
--- NOTE | 2019-04-28 04:45 | NUR ---
Resting in bed. Denies needs. Patient states "I wish I was 79 again." Patient desires to be able to walk/ride bike again. States he is considering stopping dialysis. Provided patient emotional support. Will pass information on to nex shift to make Dr. Ansari aware.
--- NOTE | 2019-04-28 06:05 | NUR ---
Patient had uneventful night. Blood sugars in 60s-70s. Was provided with juice. Will recheck this AM. Otherwise uneventful night. Resting in bed this AM.
--- NOTE | 2019-04-28 07:07 | NUR ---
Report given to RAUL Cross
[2019-04-28 07:09] LABS: BASO % 0.5 % (0.0-2.0); EOS # 0.1 (0.0-0.7); EOS % 1.5 % (0-4.0); GRAN # 4.9 (1.4-6.5); GRAN % 82.4 % (42.2-75.2); LYMPH # 0.3 (1.2-3.4); LYMPH % 5.7 % (20.0-51.0); MEAN CELL VOLUME 99 fl (80.0-100.0); MEAN CORPUSCULAR HGB CONC 31 g/dl (33.0-37.0); MEAN PLATELET VOLUME 9.6 fl (7.4-10.4); MONO # 0.5 (0.1-0.6); MONO % 9.1 % (1.7-9.3); PLATELET COUNT 207 K/mm3 (130-400); RED BLOOD COUNT 3.15 M/mm3 (4.20-5.60); REDCELL DISTRIBUTION WIDTH-CV 13.7 % (11.5-14.5)
[2019-04-28 07:11] LABS: HEMATOCRIT 31.2 % (42.0-52.0); HEMOGLOBIN 9.8 g/dl (13.5-18.0); MEAN CORPUSCULAR HEMOGLOBIN 31 pg (27.0-31.0)
[2019-04-28 07:16] LABS: ALBUMIN 2.6 gm/dL (3.5-5.0); POTASSIUM 4.3 mmol/L (3.4-5.0)
[2019-04-28 07:27] LABS: CREATININE, serum 5.13 (0.66-1.25)
[2019-04-28 07:32] VITALS: BP 117/47; PULSE 65; TEMP 98
[2019-04-28 11:58] VITALS: BP 144/57; PULSE 77; TEMP 98.3
--- NOTE | 2019-04-28 12:12 | NUR ---
Patient was awake and alert after receiveing report. He is observed to be low in the bed, he lowered his head of bed and repositioned selft independently. Did go for dialysis treatment and has returned. Returned to bed, does not have pain. Call light and personal items are within reach.
--- NOTE | 2019-04-28 13:23 | NUR ---
TESSA requested from Dr. Ansari' nurse, Ruby, to order PT/OT. TESSA faxed updates to Hank at [facility]. TESSA to continue to follow.
[2019-04-28 16:04] VITALS: BP 138/64; PULSE 58; TEMP 98.6
--- NOTE | 2019-04-28 18:21 | NUR ---
Patient is resting in bed watching TV. Offered assistance with ordering food. Stated he wasnt quite ready. Did inform that kitchen closes at 7, he understood. Call light and fresh water provided.
--- NOTE | 2019-04-28 20:05 | NUR ---
Resting in bed. Assessment complete. Lungs coarse throughout. Denies shortness of breath. Respiratory therapy notified. Pulses present throughout. Bilateral lower leg edema +1 with erythema. Left forearm fistula bruit and thrill present. Right forearm INT without complicationms. Reports mild pain at this time. Provided with scheduled motrin. Denies other needs at this time. Call light in reach.
[2019-04-28 20:46] VITALS: BP 125/60; PULSE 74; TEMP 98.5
[2019-04-28 23:49] VITALS: BP 126/42; PULSE 66; TEMP 98
--- NOTE | 2019-04-29 00:30 | NUR ---
Resting in bed asleep. Denies needs. Call light in reach.
[2019-04-29 04:21] VITALS: BP 154/65; TEMP 97.6
--- NOTE | 2019-04-29 05:00 | NUR ---
Resting in bed. Reports weakness with repositioning in bed. Patient states he has not slept all night. Will try to rest this AM. Denies needs. Call light in reach.
--- NOTE | 2019-04-29 06:31 | NUR ---
Patient had uneventful night. Resting in bed this AM. Call light in reach.
[2019-04-29 06:49] LABS: BASO % 0.7 % (0.0-2.0); EOS # 0.2 (0.0-0.7); EOS % 2.6 % (0-4.0); GRAN # 4.6 (1.4-6.5); GRAN % 80.4 % (42.2-75.2); HEMOGLOBIN 10.7 g/dl (13.5-18.0); LYMPH # 0.4 (1.2-3.4); LYMPH % 6.9 % (20.0-51.0); MEAN CELL VOLUME 99 fl (80.0-100.0); MEAN CORPUSCULAR HEMOGLOBIN 31 pg (27.0-31.0); MEAN CORPUSCULAR HGB CONC 32 g/dl (33.0-37.0); MEAN PLATELET VOLUME 9.5 fl (7.4-10.4); MONO # 0.5 (0.1-0.6); MONO % 8.5 % (1.7-9.3); PLATELET COUNT 209 K/mm3 (130-400); RED BLOOD COUNT 3.44 M/mm3 (4.20-5.60); REDCELL DISTRIBUTION WIDTH-CV 13.8 % (11.5-14.5)
--- NOTE | 2019-04-29 07:00 | NUR ---
Received report from departing nurse Adenike CARTER. Reported to primary nurse [place] CARTER and will assist with all cares from [phone].
[2019-04-29 07:07] LABS: ALBUMIN 2.8 gm/dL (3.5-5.0); CALCIUM 8.1 mg/dL (8.4-10.2); POTASSIUM 3.8 mmol/L (3.4-5.0)
[2019-04-29 07:25] LABS: CREATININE, serum 3.98 (0.66-1.25)
--- NOTE | 2019-04-29 07:25 | NUR ---
Report given to RAUL Berumen
[2019-04-29 07:36] LABS: PHOSPHOROUS 4.1 mg/dL (2.5-4.5)
[2019-04-29 07:58] VITALS: BP 161/62; PULSE 75; TEMP 97.4
[2019-04-29 11:55] VITALS: BP 141/54; PULSE 69; TEMP 97.6
--- NOTE | 2019-04-29 13:41 | NUR ---
Reported off with Primary nurse [place] CARTER.
--- NOTE | 2019-04-29 13:44 | NUR ---
ASSISTED PATIENT WITH GETTING INTO WHEELCHAIR. PT INDEPENDENTLY BRUSHED TEETH AND COMBED HAIR. PT NOW IN THE HALLWAY WHEELING HIMSELF AROUND THE HALLS.
--- NOTE | 2019-04-29 13:54 | NUR ---
Primary nurse was assisted with [phone] patient care by [employer] [facility] Antonio Potts and [employer] instructor Monica Mohan RN-BC.
--- NOTE | 2019-04-29 14:20 | NUR ---
TESSA contacted and faxed updates to Hank at [facility]. TESSA also requested the patient's nurse to order PT/OT. TESSA to continue to follow.
[2019-04-29 16:03] VITALS: BP 144/53; PULSE 85; TEMP 97.9
[2019-04-29 19:05] VITALS: BP 139/64; PULSE 76; TEMP 98.6
--- NOTE | 2019-04-29 20:15 | NUR ---
Shift assessment complete. Patient in bed, awake. States, pain 2/10 in neck. Declines pain medications. Unable to see eMAR d/t computer system down, patient updated. Will administer scheduled meds when eMAR is printed by IT. Patient ok with this plan. Denies further needs at this time. Will continue to monitor.
--- NOTE | 2019-04-29 23:30 | NUR ---
Called to pt room by MASTER PLUMBER. MASTER PLUMBER observed pt shaking, with clenched fists. Stated, "his eyes rolled in the back of his head." Assessed pt, a/o x3. Patient stated that this happens sometimes when he is frustrated, he also exhibits shaking at times with his Parkinson's disease. BG 105. HR palpated radially, HR 58, and irregular. Notified Dr. Ansari of event. Instructed to administer scheduled meds and monitor. Dr. Ansari aware that computer system had been down, therefore, scheduled meds were given late. Patient does not appear to have had a stroke, no symptoms present. Will continue to monitor.
[2019-04-30] VITALS (7 sets, daily range): BP systolic 128–178; BP diastolic 52–80; PULSE 58–74; TEMP 97.4–98.5
--- NOTE | 2019-04-30 04:10 | NUR ---
Patient in bed, awake. Denies pain. States, his forearms and hands feel very stiff, and he feels "anxious and grumpy." States he does not need me to do anything about that. Denies further needs at this time. Will continue to monitor.
[2019-04-30 07:17] LABS: BASO % 0.5 % (0.0-2.0); EOS # 0.2 (0.0-0.7); EOS % 3.5 % (0-4.0); GRAN # 4.9 (1.4-6.5); GRAN % 78.6 % (42.2-75.2); HEMOGLOBIN 10.8 g/dl (13.5-18.0); LYMPH # 0.5 (1.2-3.4); LYMPH % 7.8 % (20.0-51.0); MEAN CELL VOLUME 101 fl (80.0-100.0); MEAN CORPUSCULAR HEMOGLOBIN 31 pg (27.0-31.0); MEAN CORPUSCULAR HGB CONC 31 g/dl (33.0-37.0); MEAN PLATELET VOLUME 9.6 fl (7.4-10.4); MONO # 0.5 (0.1-0.6); MONO % 8.6 % (1.7-9.3); PLATELET COUNT 198 K/mm3 (130-400); RED BLOOD COUNT 3.48 M/mm3 (4.20-5.60); REDCELL DISTRIBUTION WIDTH-CV 13.5 % (11.5-14.5)
[2019-04-30 07:27] LABS: ALBUMIN 2.8 gm/dL (3.5-5.0); CALCIUM 8.2 mg/dL (8.4-10.2); PHOSPHOROUS 5.3 mg/dL (2.5-4.5); POTASSIUM 3.6 mmol/L (3.4-5.0)
[2019-04-30 07:30] LABS: CREATININE, serum 5.32 (0.66-1.25)
--- NOTE | 2019-04-30 15:46 | NUR ---
Assessment complete. Pt resting in bed, A&O x 3. Breath sounds CTAB. BS active x 4. Pt reports pain to neck 2 out of 10 on pain scale, requests PRN pain medication with his sched morning meds per his home routine. Saline lock IV to right wrist without s/s of complications. No further needs reported. Call light in reach.
--- NOTE | 2019-04-30 17:00 | NUR ---
After being up in WC, having BM and getting back to bed, pt has episode of emesis, reports feeling that the nausea is related to stomach acid, requests TUMs or Rolaids. Provider notified. Orders received. Sched meds aministered. No further needs reported. Call light in reach.
--- NOTE | 2019-04-30 20:00 | NUR ---
Shift assessment complete. Pt resting in bed, awake, a&o, cooperative c cares. Pt c/o continued chronic pain to L shoulder, provided c PRN APAP per pt request. Pt denies any other c/o at this time. INT patent. HD AVF noted to L forearm, strong bruit/thrill. Pt denies further needs at this time. Call light in reach, bed alarm on. Will continue to monitor.
[2019-05-01 03:48] VITALS: BP 138/61; PULSE 63; TEMP 97.6
--- NOTE | 2019-05-01 07:05 | NUR ---
Assessment complete. Pt resting in bed, A&O x 3. Breath sounds slightly coarse in right upper lobe, CTA in left lung. BS active x 4. Pt reports pain to neck 2 out of 10. Saline lock IV to right wrist without s/s of complications. POC reviewed with pt with dialysis planned for 0800. No further needs reported. Call light in reach.
--- NOTE | 2019-05-01 08:05 | NUR ---
Pt to [facility] rm 18 via WC for hemodialysis.
[2019-05-01 08:09] VITALS: BP 116/90; PULSE 115; TEMP 96.9
[2019-05-01 08:48] LABS: HEMOGLOBIN 11.2 g/dl (13.5-18.0); MEAN CELL VOLUME 97 fl (80.0-100.0); MEAN CORPUSCULAR HEMOGLOBIN 31 pg (27.0-31.0); MEAN CORPUSCULAR HGB CONC 32 g/dl (33.0-37.0); MEAN PLATELET VOLUME 9.3 fl (7.4-10.4); PLATELET COUNT 187 K/mm3 (130-400); RED BLOOD COUNT 3.64 M/mm3 (4.20-5.60); REDCELL DISTRIBUTION WIDTH-CV 13.4 % (11.5-14.5)
[2019-05-01 08:56] LABS: ALBUMIN 2.9 gm/dL (3.5-5.0); CALCIUM 8.3 mg/dL (8.4-10.2); PHOSPHOROUS 3.9 mg/dL (2.5-4.5); POTASSIUM 3.7 mmol/L (3.4-5.0)
[2019-05-01 08:57] LABS: CREATININE, serum 4.21 (0.66-1.25)
[2019-05-01 09:06] LABS: HEMATOCRIT 35.4 % (42.0-52.0)
[2019-05-01 09:30] LABS: BAND 2 % (0-10); EOSINOPHIL 3 % (0-4); LYMPHOCYTE 5 % (20.0-51.0); NEUTROPHILS 87 % (42.0-75.2); OVALOCYTES 1+; PLATELET ESTIMATE NORMAL (NORMAL)
--- NOTE | 2019-05-01 12:00 | NUR ---
Pt back to room following hemodialysis via WC, reports feeling tired, denies needs at this time. Call light in reach.
[2019-05-01 12:29] VITALS: BP 110/75; PULSE 80; TEMP 97.5
--- NOTE | 2019-05-01 17:45 | NUR ---
Pt resting in bed, reports feeling wiped out from dialysis, denies further needs. Call light in reach.
[2019-05-01 18:01] VITALS: BP 137/60; PULSE 44; TEMP 98.7
[2019-05-01 20:29] VITALS: BP 108/76; PULSE 78; TEMP 98.6
--- NOTE | 2019-05-01 20:40 | NUR ---
Shift assessment complete. Pt resting in bed, awake, a&o, cooperative c cares. Pt reports continued c/o pain to L neck/shoulder et coccyx; motrin scheduled c hs meds. Pt denies any other c/o. INT patent. HD AVF noted to L forearm, strong bruit/thrill. Pt denies needs. Call light in reach, bed alarm on. Will continue to monitor.
[2019-05-02 00:32] VITALS: BP 126/62; PULSE 96; TEMP 98.2
[2019-05-02 03:49] VITALS: BP 134/61; PULSE 80; TEMP 98.6
--- NOTE | 2019-05-02 04:38 | NUR ---
Pt resting in bed, condition unchanged. Pt has rested well this shift c very few needs. Denies needs at this time. Call light in reach, bed alarm on.
[2019-05-02 06:42] LABS: HEMATOCRIT 39.7 % (42.0-52.0); HEMOGLOBIN 12.4 g/dl (13.5-18.0); MEAN CELL VOLUME 100 fl (80.0-100.0); MEAN CORPUSCULAR HEMOGLOBIN 31 pg (27.0-31.0); MEAN CORPUSCULAR HGB CONC 31 g/dl (33.0-37.0); MEAN PLATELET VOLUME 9.5 fl (7.4-10.4); PLATELET COUNT 226 K/mm3 (130-400); RED BLOOD COUNT 3.98 M/mm3 (4.20-5.60); REDCELL DISTRIBUTION WIDTH-CV 13.4 % (11.5-14.5)
[2019-05-02 06:53] LABS: ALBUMIN 3.1 gm/dL (3.5-5.0); CALCIUM 8.7 mg/dL (8.4-10.2); POTASSIUM 3.9 mmol/L (3.4-5.0)
[2019-05-02 07:22] LABS: CREATININE, serum 4.54 (0.66-1.25)
[2019-05-02 07:36] VITALS: BP 166/83; PULSE 87; TEMP 97.8
[2019-05-02 08:01] LABS: EOSINOPHIL 4 % (0-4); LYMPHOCYTE 13 % (20.0-51.0); NEUTROPHILS 80 % (42.0-75.2); PLATELET ESTIMATE NORMAL (NORMAL)
[2019-05-02] MEDS ORDERED: AMOXICILLIN/CLA1 TA1 PO (11:47)
[2019-05-02 12:20] VITALS: BP 127/70; PULSE 79; TEMP 98.8
[2019-05-02 14:17] VITALS: BP 127/70; PULSE 79; TEMP 98.8
--- NOTE | 2019-05-02 14:37 | NUR ---
Appetite is poor. Lead Javascript Engineer called and supplement, Ensure Clear and Pashto Ice obtained and patient ordered some chocolate chip cookies for now. Skin dry and flaky on back. Sacral dressing changed and skin is not broken, pink and blanches. Bilateral heels mushy and skin on feet peeling some. Heels reddened and marley. Complains of hands and feet feeling 'dirty', 'gritty', with some numbness. States he cannot move at the shoulder joints. Doctor was in and patient was discharged back to [facility]. He is waiting for his ride and they should be here around 15:30pm.
--- NOTE | 2019-05-02 14:53 | NUR ---
The patient is to discharge today, 05/02, back to [facility] for a skilled stay. Transportation was scheduled for around 1530, via [facility]. TESSA informed the patient and patient's nurse. They were both in agreeance. SW attempted to contact the patient's daughter, Esther, to inform of time. SW left a voicemail. TESSA also presented and explained the IM form to the patient. The patient verbalized understanding, signed, and he was provided a copy. No additional needs at this time.
--- NOTE | 2019-05-02 15:40 | NUR ---
Patient discharged back to [facility] via wheelchair and was picked up by staff from [facility] for transport back to the facility, [facility]. Copy of the latest MAR copied and sent with patient to the facility. Copies also provided to the patient per his request.
== END 2019-05-02 15:40 | DRG 193 ==
LOC: COL.ER 18:24 → MEDICAL 19:47
PROVIDERS: Family Medicine; ADMIT Internal Medicine Nephrology
PROC: 5A1D70Z Performance of Urinary Filtration, Intermittent, Less than 6 Hours Per Day (ICD-10-PCS; principal; 2019-04-28)
DX: J18.9 Pneumonia, unspecified organism (principal); N18.6 End stage renal disease; I12.0 Hypertensive chronic kidney disease with stage 5 chronic kidney disease or end stage renal disease; E11.22 Type 2 diabetes mellitus with diabetic chronic kidney disease; E11.319 Type 2 diabetes mellitus with unspecified diabetic retinopathy without macular edema; N40.0 Benign prostatic hyperplasia without lower urinary tract symptoms; D63.1 Anemia in chronic kidney disease; E11.21 Type 2 diabetes mellitus with diabetic nephropathy; I48.91 Unspecified atrial fibrillation; F03.90 Unspecified dementia, unspecified severity, without behavioral disturbance, psychotic disturbance, mood disturbance, and anxiety; E78.5 Hyperlipidemia, unspecified; I95.9 Hypotension, unspecified; E09.42 Drug or chemical induced diabetes mellitus with neurological complications with diabetic polyneuropathy; G20 Parkinson's disease; E83.39 Other disorders of phosphorus metabolism; Z99.2 Dependence on renal dialysis; Z79.4 Long term (current) use of insulin; Z79.82 Long term (current) use of aspirin; Z88.1 Allergy status to other antibiotic agents
CPT/HCPCS: J0696; J0882; J1644; J7030